=== PATIENT | male | born 1960 | race African-American/Black ===

== ENCOUNTER 2022-01-04 19:07 | Inpatient (IN) ==
[2022-01-04] MEDS ORDERED: PIPERACILLIN/TAZOBACTAM 4.5 GM/120 ML BAG IV ONE (19:46)
[2022-01-04] MEDS ORDERED: SODIUM CHLORIDE 0.9% 1000ML 1,000 ML IV STA (19:46)
[2022-01-04] MEDS ORDERED: MoRPHine SULFATE 4 MG/ML 1 ML CARP\\VIAL IV STA (19:48)
[2022-01-04] MEDS ORDERED: ONDANSETRON INJ 2 MG/ML 2 ML VIAL IV STA (19:48)
--- NOTE | 2022-01-04 19:51 | Emergency Department Note ---
Impression & Plan Diabetic infection of right foot, DEENA (acute kidney injury), Sepsis, Acute hyponatremia ED Provider Note Provider: William Norwood MD DATE OF SERVICE: 01/04/2022 CHIEF COMPLAINT: Foot wound HISTORY OF PRESENT ILLNESS: Patient is a 61-year-old gentleman history of diabetes presenting here today brought by his daughter for evaluation of a foot wound. Patient states about 2 weeks ago he noticed a wound on the right part of his foot. Denies any trauma or falls here. States the wound has progressed and is now having significant discharge and it smells foul. Patient states this is made him nauseous and he is having pain in the foot. Reports swelling of the right lower leg probably below the knee. Reports some chills today. No history of MRSA or diabetic infections reported. Patient states he does not monitor his blood sugar at home but is not on insulin. Patient states he has not been eating that well particularly today. Denies abdominal pain. REVIEW OF SYSTEMS: A total of 10 review of systems was obtained and negative except as stated above in the HPI. 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 NECK: Trachea midline. ENT: Mucous membranes pink and moist. LUNGS: Airway patent. No retractions or tachypnea HEART: Regular tachycardic rate and rhythm. ABDOMEN: Soft and non-tender, without guarding or rebound. SKIN: Acyanotic, warm, dry except as below EXTREMITIES: Patient with 1+ left lower extremity and 2+ right lower extremity below the knee. Patient with sloughing and purulent skin and possibly the right lateral foot by the fifth MTP area. There is some slight purulence on the anterior dorsum of the foot. Perhaps trace crepitus of the right foot. NEUROLOGICAL: No aphasia. No facial droop or slurred speech. Ambulatory. Moving all extremities with some mildly decreased sensation of the bilateral toes. EK bpm sinus tachycardia. No PVC PAC. No acute ST segment elevation or depression with a QTC of 440. CONTINUOUS CARDIAC MONITORING: was ordered and showed a heart rate of 80s-110s bpm in normal sinus rhythm to sinus tachycardia Patient's laboratory studies and imaging reviewed. Differential includes Foreign body, fracture, dislocation, joint compromise, infection, soft tissue injury, tendon injury, vascular compromise, compartment syndrome, as well as other pathologies. IMPRESSION/MEDICAL DECISION MAKING: Patient is a 61-year-old gentleman 2 weeks of worsening wound by his report of his right foot and he is a diabetic. Significant purulence noted and foul smell on exam. With the patient's evidence of purulence there I did bathe the area and Betadine and washed extensively with 500mL of normal saline. Wound culture obtained. Did debride a small amount of sloughing skin off the sole of the lateral foot that was barely hanging on. Patient endorses some chills today and is tachycardic. Blood work and cultures were obtained. No significant trauma is reported. X-ray per radiology without obvious evidence of Osteomyelitis but question some gas in the foot. Patient's blood work with evidence of leukocytosis and elevated ESR. Lactate not elevated. Initially ordered Zosyn and expanded with vancomycin and clindamycin given the findings on the x-ray. Discussed with the patient and daughter and reached out to orthopedics. Patient received more than 30 mL/kg of crystalloid fluid resuscitation. Blood work returns with a hyponatremia of 125 and creatinine of 2.6. Glucose elevated 354. Discussed with the patient and he denies a history of significant renal dysfunction. CRP significantly elevated in addition to the hyponatremia and elevated renal function. Again received IV fluid hydration. Discussed with orthopedics who recommended medical resuscitation antibiotics and will further evaluate in the morning for likely more debridement. Updated the patient and daughter at bedside. Hospitalist contacted for admission. DIAGNOSIS: Diabetic right foot infection, sepsis, hyponatremia, DEENA, hyperglycemia due to type 2 diabetes DISPOSITION: Hospitalist will evaluate Patient was agreeable with this plan. Past Med/Surg History Social History Smoking Status: Former smoker Tobacco Type: Cigarettes Feels Safe at Home: Yes Allergies Allergies Allergy/AdvReac Type Severity Reaction Status Date / Time No Known Allergies Allergy Verified 01/04/22 20:34 Home Meds Home Medications Medication Instructions Recorded Confirmed amlodipine 5 mg tablet 5 mg PO HS 01/04/22 01/04/22 cyanocobalamin (vitamin B-12) 2,000 mcg PO DAILY 01/04/22 01/04/22 2,000 mcg tablet,extended release dulaglutide 1.5 mg/0.5 mL 0 mg SUBCUT WK 01/04/22 01/04/22 subcutaneous pen injector (Trulicity) insulin degludec 200 unit/mL (3 0 unit SUBCUT DAILY 01/04/22 01/04/22 mL) subcutaneous pen (Tresiba FlexTouch U-200 insulin) lisinopril 5 mg tablet 5 mg PO DAILY 01/04/22 01/04/22 metformin 750 mg tablet,extended 750 mg PO DAILY 01/04/22 01/04/22 release 24 hr sildenafil 100 mg tablet 50 - 100 mg PO DIRECTED PRN 01/04/22 01/04/22 Results & Data (ED) Vital Signs Vital Signs - 24 hr 01/04/22 19:20 01/04/22 20:29 01/04/22 22:00 Temperature 36.9 C Temperature Source Temporal Artery Scan Pulse Rate 114 H Pulse Rate [Right Finger] 112 H 99 H Respiratory Rate 16 16 16 Respiratory Effort / Characteristics Non-Labored Spontaneous Respiratory Depth Normal Blood Pressure 156/75 H Blood Pressure [Right Arm] 171/87 H 145/76 H Blood Pressure Mean 102 Blood Pressure Mean [Right Arm] 115 99 Pulse Oximetry 100 98 100 Oxygen Delivery Method Room Air Room Air Room Air Sepsis Recent Fever Within 48 Hours No Sepsis New/Unexplained Change in Mental Status No Sepsis Action Taken by Nursing No Action Required Laboratory Data Result diagrams: 01/04/22 19:50 01/04/22 19:50 Lab Results 01/04/22 01/04/22 01/04/22 Range/Units 19:50 19:50 19:50 WBC 28.33 H (4.8-10.8) K/uL RBC 3.71 L (4.7-6.1) M/uL Hgb 10.0 L (14.0-18.0) g/dL Hct 28.8 L (42-52) % MCV 77.6 L (80-100) fL MCH 27.0 (25-34) pg MCHC 34.7 (32-36) g/dL RDW Std Deviation 38.3 (36.4-46.3) fL RDW Coeff of Radha 13.4 (11.5-14.5) % Plt Count 429 H (130-400) K/uL MPV 9.4 (7.4-10.4) fL Immature Gran % (Auto) 1.2 % Neut % (Auto) 90.0 % Lymph % (Auto) 6.1 % Dougherty % (Auto) 2.6 % Eos % (Auto) 0.0 % Baso % (Auto) 0.1 % Neut # (Auto) 25.48 H (1.4-6.5) K/uL Lymph # (Auto) 1.73 (1.2-3.4) K/uL Dougherty # (Auto) 0.75 H (0.11-0.59) K/uL Eos # (Auto) 0.01 (0-0.5) K/uL Baso # (Auto) 0.03 (0-0.2) K/uL Immature Gran # (Auto) 0.33 H (0.00-0.02) K/uL ESR (0-20) mm/hr PT 12.4 H (9.0-12.0) Seconds INR 1.2 H (0.9-1.1) Sodium 125 L (136-145) mmol/L Potassium 4.5 (3.5-5.1) mmol/L Chloride 94 L (98-107) mmol/L Carbon Dioxide 17 L (21-32) mmol/L Anion Gap 14 H (3-11) BUN 88 H (6-23) mg/dl Creatinine 2.65 H (0.6-1.4) mg/dl Est Cr Clr Drug Dosing 35.0 ml/min Est GFR ( Amer) 28.9 ml/min Est GFR (Non-Af Amer) 24.9 ml/min BUN/Creatinine Ratio 33.2 H (10-20) Glucose 354 H* (70-99(Fasting)) mg/dl Lactate (0.4-2.0) mmol/L Calcium 8.7 (8.5-10.1) mg/dl Total Bilirubin 1.1 H (0.2-1.0) mg/dl AST 25 (13-39) U/L ALT 22 (7-52) U/L Alkaline Phosphatase 272 H (34-104) U/L C-Reactive Protein 46.51 H (0-0.5) mg/dl Total Protein 8.1 (6.0-8.3) gm/dl Albumin 3.0 L (3.4-5.0) gm/dl Globulin 5.1 H (2.5-4.0) gm/dl Albumin/Globulin Ratio 0.6 L (0.9-2) Lipase 42 (11-82) U/L Procalcitonin (0-0.5) ng/ml Nasal Screen MRSA (PCR) (Negative) SARS-CoV-2, RNA, NAAT (NEGATIVE) 01/04/22 01/04/22 01/04/22 Range/Units 19:50 19:50 19:50 WBC (4.8-10.8) K/uL RBC (4.7-6.1) M/uL Hgb (14.0-18.0) g/dL Hct (42-52) % MCV (80-100) fL MCH (25-34) pg MCHC (32-36) g/dL RDW Std Deviation (36.4-46.3) fL RDW Coeff of Radha (11.5-14.5) % Plt Count (130-400) K/uL MPV (7.4-10.4) fL Immature Gran % (Auto) % Neut % (Auto) % Lymph % (Auto) % Dougherty % (Auto) % Eos % (Auto) % Baso % (Auto) % Neut # (Auto) (1.4-6.5) K/uL Lymph # (Auto) (1.2-3.4) K/uL Dougherty # (Auto) (0.11-0.59) K/uL Eos # (Auto) (0-0.5) K/uL Baso # (Auto) (0-0.2) K/uL Immature Gran # (Auto) (0.00-0.02) K/uL ESR 97 H (0-20) mm/hr PT (9.0-12.0) Seconds INR (0.9-1.1) Sodium (136-145) mmol/L Potassium (3.5-5.1) mmol/L Chloride (98-107) mmol/L Carbon Dioxide (21-32) mmol/L Anion Gap (3-11) BUN (6-23) mg/dl Creatinine (0.6-1.4) mg/dl Est Cr Clr Drug Dosing ml/min Est GFR ( Amer) ml/min Est GFR (Non-Af Amer) ml/min BUN/Creatinine Ratio (10-20) Glucose (70-99(Fasting)) mg/dl Lactate 1.4 (0.4-2.0) mmol/L Calcium (8.5-10.1) mg/dl Total Bilirubin (0.2-1.0) mg/dl AST (13-39) U/L ALT (7-52) U/L Alkaline Phosphatase (34-104) U/L C-Reactive Protein (0-0.5) mg/dl Total Protein (6.0-8.3) gm/dl Albumin (3.4-5.0) gm/dl Globulin (2.5-4.0) gm/dl Albumin/Globulin Ratio (0.9-2) Lipase (11-82) U/L Procalcitonin 15.28 H (0-0.5) ng/ml Nasal Screen MRSA (PCR) (Negative) SARS-CoV-2, RNA, NAAT (NEGATIVE) 01/04/22 01/04/22 Range/Units 20:08 20:48 WBC (4.8-10.8) K/uL RBC (4.7-6.1) M/uL Hgb (14.0-18.0) g/dL Hct (42-52) % MCV (80-100) fL MCH (25-34) pg MCHC (32-36) g/dL RDW Std Deviation (36.4-46.3) fL RDW Coeff of Radha (11.5-14.5) % Plt Count (130-400) K/uL MPV (7.4-10.4) fL Immature Gran % (Auto) % Neut % (Auto) % Lymph % (Auto) % Dougherty % (Auto) % Eos % (Auto) % Baso % (Auto) % Neut # (Auto) (1.4-6.5) K/uL Lymph # (Auto) (1.2-3.4) K/uL Dougherty # (Auto) (0.11-0.59) K/uL Eos # (Auto) (0-0.5) K/uL Baso # (Auto) (0-0.2) K/uL Immature Gran # (Auto) (0.00-0.02) K/uL ESR (0-20) mm/hr PT (9.0-12.0) Seconds INR (0.9-1.1) Sodium (136-145) mmol/L Potassium (3.5-5.1) mmol/L Chloride (98-107) mmol/L Carbon Dioxide (21-32) mmol/L Anion Gap (3-11) BUN (6-23) mg/dl Creatinine (0.6-1.4) mg/dl Est Cr Clr Drug Dosing ml/min Est GFR ( Amer) ml/min Est GFR (Non-Af Amer) ml/min BUN/Creatinine Ratio (10-20) Glucose (70-99(Fasting)) mg/dl Lactate (0.4-2.0) mmol/L Calcium (8.5-10.1) mg/dl Total Bilirubin (0.2-1.0) mg/dl AST (13-39) U/L ALT (7-52) U/L Alkaline Phosphatase (34-104) U/L C-Reactive Protein (0-0.5) mg/dl Total Protein (6.0-8.3) gm/dl Albumin (3.4-5.0) gm/dl Globulin (2.5-4.0) gm/dl Albumin/Globulin Ratio (0.9-2) Lipase (11-82) U/L Procalcitonin (0-0.5) ng/ml Nasal Screen MRSA (PCR) Negative (Negative) SARS-CoV-2, RNA, NAAT NEGATIVE (NEGATIVE) Administered Medications Vancomycin HCl 2,000 mg/ (Sodium Chloride) 540 mls @ 200 mls/hr IV NOW ONE Stop: 01/04/22 23:24 Last Admin: 01/04/22 21:30 Dose: 200 mls/hr Documented by: [id number] Discontinued Medications Sodium Chloride (Nss 1000ml) 1,000 mls @ 999 mls/hr IV .Q1H1M STA Stop: 01/04/22 20:46 Last Infusion: 01/04/22 21:18 Dose: 0 mls/hr Documented by: [id number] Admin: 01/04/22 20:09 Dose: 999 mls/hr Documented by: [id number] Piperacillin Sod/Tazobactam Sod (Zosyn) 4.5 gm in 120 mls @ 240 mls/hr IV NOW ONE Stop: 01/04/22 20:15 Last Infusion: 01/04/22 21:17 Dose: 0 mls/hr Documented by: [id number] Admin: 01/04/22 20:29 Dose: 240 mls/hr Documented by: [id number] Lactated Ringer's (Lr) 2,000 mls @ 999 mls/hr IV .Q2H1M ONE Stop: 01/04/22 22:43 Last Admin: 01/04/22 21:30 Dose: 999 mls/hr Documented by: [id number] Morphine Sulfate (Morphine Sulfate 4 Mg/Ml 1 Ml Carp\Vial) 4 mg IV NOW STA Stop: 01/04/22 19:49 Last Admin: 01/04/22 20:09 Dose: 4 mg Documented by: [id number] Ondansetron HCl (Ondansetron Inj 2 Mg/Ml 2 Ml Vial) 4 mg IV NOW STA Stop: 01/04/22 19:49 Last Admin: 01/04/22 20:09 Dose: 4 mg Documented by: [id number] Imaging Data Radiologist's Impression: Foot X-Ray 01/04/22 19:46 XR foot RT min 3V routine CLINICAL HISTORY: lateral wound. COMPARISON STUDY: No previous studies for comparison. TECHNIQUE: 3 right foot views FINDINGS: Bones: There is no definite radiographic evidence for osteomyelitis. There is no evidence for an acute fracture or dislocation. There is no lytic or blastic lesion. Joints: There is narrowing of the fourth and fifth MTP joints The bones are in anatomic alignment. Soft tissues: There is extensive soft tissue swelling along the dorsum and lateral aspect of the foot. Air is seen tracking along the deep fascial plane. The findings are most characteristic of gastroenteritis. There is no radiopaque foreign body. IMPRESSION: 1. 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 2. No definite radiographic evidence for osteomyelitis. ACT 112: Negative or not required by law. Electronically signed by: Maxime Pelayo M.D. 01/04/2022 8:22 PM Discharge Plan Visit Data Chief Complaint: Wound Stated Complaint: DIABETES FALRE UP, WOUND ON R FOOT ED Provider: William Norwood Discharge Problem: Diabetic infection of right foot, DEENA (acute kidney injury), Sepsis, Acute hyponatremia Patient Disposition: Being Evaluated by Hospitalist Forms Stand Alone Forms: My [facility] [employer] Prescriptions Prescriptions: No Action amlodipine 5 mg tablet 5 mg PO HS RF: 0 sildenafil 100 mg tablet 50 - 100 mg PO DIRECTED PRN (Reason: Erectile Dysfunction) RF: 0 lisinopril 5 mg tablet 5 mg PO DAILY RF: 0 cyanocobalamin (vitamin B-12) 2,000 mcg tablet extended release 2,000 mcg PO DAILY RF: 0 metformin 750 mg tablet extended release 24 hr 750 mg PO DAILY RF: 0 Tresiba FlexTouch U-200 200 unit/mL (3 mL) Insulin Pen 0 unit SUBCUT DAILY RF: 0 Trulicity 1.5 mg/0.5 mL Pen Injector 0 mg SUBCUT WK RF: 0 Referrals Referrals: De Quinn DO [Primary Care Provider] - Discharge Problem: Sepsis Qualifiers: Sepsis type: sepsis due to unspecified organism Sepsis acute organ dysfunction status: with acute organ dysfunction Severe sepsis acute organ dysfunction type: unspecified Severe sepsis shock status: without septic shock Qualified Code(s): A41.9 - Sepsis, unspecified organism
[2022-01-04 20:16] LABS: Hematocrit (blood only) 28.8 % (42-52); Mean Corpuscular Hgb Conc 34.7 g/dL (32-36); Mean Corpuscular Volume 77.6 fL (80-100); Mean Platelet Volume 9.4 fL (7.4-10.4); Platelet Count 429 K/uL (130-400); RDW Coefficient of Variation 13.4 % (11.5-14.5); RDW Standard Deviation 38.3 fL (36.4-46.3); Red Blood Count 3.71 M/uL (4.7-6.1); White Blood Count 28.33 K/uL (4.8-10.8)
--- NOTE | 2022-01-04 20:24 | XRay Report ---
XR foot RT min 3V routine CLINICAL HISTORY: lateral wound. COMPARISON STUDY: No previous studies for comparison. TECHNIQUE: 3 right foot views FINDINGS: Bones: There is no definite radiographic evidence for osteomyelitis. There is no evidence for an acut e fracture or dislocation. There is no lytic or blastic lesion. Joints: There is narrowing of the fourth and fifth MTP joints The bones are in anatomic alignment. Soft tissues: There is extensive soft tissue swelling along the dorsum and lateral aspect of the foot . Air is seen tracking along the deep fascial plane. The findings are most characteristic of gastroen teritis. There is no radiopaque foreign body. IMPRESSION: 1. 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 2. No definite radiographic evidence for osteomyelitis. ACT 112: Negative or not required by law. Electronically signed by: Maxime Pelayo M.D. 01/04/2022 8:22 PM
[2022-01-04 20:36] LABS: Basophils # (auto) 0.03 K/uL (0-0.2); Basophils % (auto) 0.1 %; Eosinophils # (auto) 0.01 K/uL (0-0.5); Immature Granulocytes # (auto) 0.33 K/uL (0.00-0.02); Immature Granulocytes % (auto) 1.2 %; Lymphocytes # (auto) 1.73 K/uL (1.2-3.4); Lymphocytes % (auto) 6.1 %; Monocytes # (auto) 0.75 K/uL (0.11-0.59); Monocytes % (auto) 2.6 %; Neutrophils # (auto) 25.48 K/uL (1.4-6.5)
[2022-01-04 20:40] LABS: INR 1.2 (0.9-1.1); Prothrombin Time 12.4 Seconds (9.0-12.0)
[2022-01-04] MEDS ORDERED: VANCOMYCIN HCL 2,000 MG in SODIUM CHLORIDE 0.9% 500 ML IV ONE (20:43)
[2022-01-04] MEDS ORDERED: VANCOMYCIN CONSULT ACTIVE PRN (20:43)
[2022-01-04] MEDS ORDERED: LACTATED RINGER'S 2,000 ML IV ONE (20:43)
[2022-01-04 20:59] LABS: Albumin Globulin Ratio 0.6 (0.9-2); BUN Creatinine Ratio 33.2 (10-20); Bilirubin,Total 1.1 mg/dl (0.2-1.0); Calcium 8.7 mg/dl (8.5-10.1); Est GFR (African American) 28.9 ml/min; Est GFR (Non-African American) 24.9 ml/min; Globulin 5.1 gm/dl (2.5-4.0); Potassium 4.5 mmol/L (3.5-5.1); Total Protein 8.1 gm/dl (6.0-8.3)
[2022-01-04 21:09] LABS: C Reactive Protein 46.51 mg/dl (0-0.5)
[2022-01-04] MEDS ORDERED: CLINDAMYCIN/D5W 900 MG/50 ML BAG IV ONE (21:28)
--- NOTE | 2022-01-04 22:54 | History & Physical Report ---
Date of Service January 04, 2022 Assessment & Plan (1) Diabetic infection of right foot: Plan: Right foot diabetic infection/gas gangrene- Given vancomycin IV and Zosyn IV in ED Admitting antibiotics: Daptomycin 6 mg/kg IV every 24 hours, and Zosyn 4.5 g IV every 8 hours Consult orthopedic surgery Dr. Soto (2) Gas gangrene of foot: Plan: See above (3) Renal insufficiency: Plan: Creatinine 2.65 upon admission, with no baseline- Bicarbonate 17 on admission Placed on bicarb drip, follow labs serially in the a.m. (4) Sepsis: Plan: Sepsis secondary to diabetic foot infection, treat as above (5) Acute hyponatremia: Plan: Sodium 125 on admission Serum osmolality and urine osmolality ordered and pending Bicarbonate drip as noted above Follow laboratory serially (6) Diabetes mellitus: Plan: Glucose 354 on admission Patient is not consistent about taking his insulin, or consistent about taking his blood sugars Placedon glargine 14 units subcu now Accu-Cheks before meals and at bedtime with NovoLog coverage per scale Hold metformin and Trulicity Adjust glargine dose based on above response Patient does not know his baseline insulin dosing (7) Hypertension: Plan: Hold lisinopril due to renal insufficiency Metoprolol tartrate 50 mg p.o. twice daily (8) B12 deficiency: Plan: Continue supplement 2000 mcg p.o. daily History of Present Illness Chief Complaint: The patient is brought to the emergency department by his daughter due to concerns regarding a right foot infection. This initially began about 2 weeks ago after wearing a new pair of boots while walking out [facility], during which time he reports his foot got wet and was not cleaned properly. His foot was noted to have a bad odor to it, and he began feeling nauseous, had chills, and with decreased appetite over the past few days. Primary Care Provider: De Quinn DO The patient is a 61-year-old male with a past medical history including poorly controlled diabetes mellitus, hypertension, B12 deficiency, hypertension and erectile dysfunction. He presents with symptoms as noted above. He has not been checking his sugars on any type of regular frequency, and does have insulin but only occasionally takes it. Allergies Allergy/AdvReac Type Severity Reaction Status Date / Time No Known Allergies Allergy Verified 01/04/22 20:34 Home Medications Medication Instructions Recorded Confirmed Type amlodipine 5 mg tablet 5 mg PO HS 01/04/22 01/04/22 History cyanocobalamin (vitamin B-12) 2,000 mcg PO DAILY 01/04/22 01/04/22 History 2,000 mcg tablet,extended release dulaglutide 1.5 mg/0.5 mL 0 mg SUBCUT WK 01/04/22 01/04/22 History subcutaneous pen injector (Trulicity) insulin degludec 200 unit/mL (3 0 unit SUBCUT DAILY 01/04/22 01/04/22 History mL) subcutaneous pen (Tresiba FlexTouch U-200 insulin) lisinopril 5 mg tablet 5 mg PO DAILY 01/04/22 01/04/22 History metformin 750 mg tablet,extended 750 mg PO DAILY 01/04/22 01/04/22 History release 24 hr sildenafil 100 mg tablet 50 - 100 mg PO DIRECTED PRN 01/04/22 01/04/22 History Past Med/Surg History Medical History (Updated 01/05/22 @ 02:56 by Jairo Travis MD) B12 deficiency Diabetes mellitus Hypertension Social History Smoking Status: Never smoker Tobacco Type: Cigarettes Hx Alcohol Use: No Hx Substance Use: No Preferred Language: Maldivian Pharmacy Technician Instructor Required: No Beliefs That Will Affect Care: None Current Living Situation: Alone Other Information That Helps Us Care for You: No Feels Safe at Home: Yes Safety Concerns: Feels Safe At This Time Assistive Devices: None Review of Systems Review of Systems: The patient denies chest pain, palpitations, shortness of breath, dyspnea on exertion, cough, sore throat, fevers, chills, sweats, vomiting, diarrhea , constipation, abdominal pain, pelvic pain, blood in urine or stool, dysuria, urinary frequency or urgency, lightheadedness, dizziness, headache, memory loss, loss of consciousness, rash, abnormal bruising or bleeding, imbalance, focal weakness,numbness or tingling in arms or legs, generalized arthralgias or myalgias, back or neck pain, or night sweats. The review of systems is otherwise negative other than for that already noted above, and at least 10 systems have been reviewed. Physical Exam Physical Exam: The patient is awake, alert and oriented 3, well developed and well nourished, normocephalic and atraumatic, lying in bed and in no acute distress. HEENT--PERRL, EOMI, mucous membranes and oropharynx dry. Neck--supple. No JVD. No bruits. Thyroid normal, trachea midline, no adenopathy. Heart--normal S1 and S2. No murmurs, rubs or gallops. Lungs--clear bilaterally, no respiratory distress, no accessory muscle use. Abdomen--normal bowel sounds and soft. Nontender. Nondistended, no hernias or masses, no organomegaly. Extremities--no cyanosis or clubbing. No edema. There are good distal pulses b/l. Dermatologic--right foot is wrapped. Left without injury Neurologic--cranial nerves II through XII grossly intact. Rheumatologic--normal range of motion. Psychiatric--normal affect. Results & Data Results & Data ([facility]) Vital Signs (Past 12 Hours) Vital Signs Temp Pulse Pulse Resp BP BP Pulse Ox 01/04/22 22:00 99 H 16 145/76 H 100 01/04/22 20:29 112 H 16 171/87 H 98 01/04/22 19:20 36.9 C 114 H 16 156/75 H 100 Laboratory Results Laboratory Results WBC 28.33 K/uL (4.8-10.8) H 01/04/22 19:50 RBC 3.71 M/uL (4.7-6.1) L 01/04/22 19:50 Hgb 10.0 g/dL (14.0-18.0) L 01/04/22 19:50 Hct 28.8 % (42-52) L 01/04/22 19:50 MCV 77.6 fL (80-100) L 01/04/22 19:50 MCH 27.0 pg (25-34) 01/04/22 19:50 MCHC 34.7 g/dL (32-36) 01/04/22 19:50 RDW Std Deviation 38.3 fL (36.4-46.3) 01/04/22 19:50 RDW Coeff of Radha 13.4 % (11.5-14.5) 01/04/22 19:50 Plt Count 429 K/uL (130-400) H 01/04/22 19:50 MPV 9.4 fL (7.4-10.4) 01/04/22 19:50 Immature Gran % (Auto) 1.2 % 01/04/22 19:50 Neut % (Auto) 90.0 % 01/04/22 19:50 Lymph % (Auto) 6.1 % 01/04/22 19:50 [place] % (Auto) 2.6 % 01/04/22 19:50 Eos % (Auto) 0.0 % 01/04/22 19:50 Baso % (Auto) 0.1 % 01/04/22 19:50 Neut # (Auto) 25.48 K/uL (1.4-6.5) H 01/04/22 19:50 Lymph # (Auto) 1.73 K/uL (1.2-3.4) 01/04/22 19:50 [place] # (Auto) 0.75 K/uL (0.11-0.59) H 01/04/22 19:50 Eos # (Auto) 0.01 K/uL (0-0.5) 01/04/22 19:50 Baso # (Auto) 0.03 K/uL (0-0.2) 01/04/22 19:50 Immature Gran # (Auto) 0.33 K/uL (0.00-0.02) H 01/04/22 19:50 ESR 97 mm/hr (0-20) H 01/04/22 19:50 PT 12.4 Seconds (9.0-12.0) H 01/04/22 19:50 INR 1.2 (0.9-1.1) H 01/04/22 19:50 Sodium 125 mmol/L (136-145) L 01/04/22 19:50 Potassium 4.5 mmol/L (3.5-5.1) 01/04/22 19:50 Chloride 94 mmol/L (98-107) L 01/04/22 19:50 Carbon Dioxide 17 mmol/L (21-32) L 01/04/22 19:50 Anion Gap 14 (3-11) H 01/04/22 19:50 BUN 88 mg/dl (6-23) H 01/04/22 19:50 Creatinine 2.65 mg/dl (0.6-1.4) H 01/04/22 19:50 Est Cr Clr Drug Dosing 35.0 ml/min 01/04/22 19:50 Est GFR ( Amer) 28.9 ml/min 01/04/22 19:50 Est GFR (Non-Af Amer) 24.9 ml/min 01/04/22 19:50 BUN/Creatinine Ratio 33.2 (10-20) H 01/04/22 19:50 Glucose 354 mg/dl (70-99(Fasting)) H* 01/04/22 19:50 POC Glucose 366 mg/dl (70-99) H* 01/04/22 23:59 Osmolality 309 mOsm/kg (280-300) H 01/04/22 20:02 Lactate 1.4 mmol/L (0.4-2.0) 01/04/22 19:50 Calcium 8.7 mg/dl (8.5-10.1) 01/04/22 19:50 Total Bilirubin 1.1 mg/dl (0.2-1.0) H 01/04/22 19:50 AST 25 U/L (13-39) 01/04/22 19:50 ALT 22 U/L (7-52) 01/04/22 19:50 Alkaline Phosphatase 272 U/L (34-104) H 01/04/22 19:50 C-Reactive Protein 46.51 mg/dl (0-0.5) H 01/04/22 19:50 Total Protein 8.1 gm/dl (6.0-8.3) 01/04/22 19:50 Albumin 3.0 gm/dl (3.4-5.0) L 01/04/22 19:50 Globulin 5.1 gm/dl (2.5-4.0) H 01/04/22 19:50 Albumin/Globulin Ratio 0.6 (0.9-2) L 01/04/22 19:50 Lipase 42 U/L (11-82) 01/04/22 19:50 Procalcitonin 15.28 ng/ml (0-0.5) H 01/04/22 19:50 Nasal Screen MRSA (PCR) Negative (Negative) 01/04/22 20:08 SARS-CoV-2, RNA, NAAT NEGATIVE (NEGATIVE) 01/04/22 20:48 Impressions Foot X-Ray 01/04/22 19:46 XR foot RT min 3V routine CLINICAL HISTORY: lateral wound. COMPARISON STUDY: No previous studies for comparison. TECHNIQUE: 3 right foot views FINDINGS: Bones: There is no definite radiographic evidence for osteomyelitis. There is no evidence for an acute fracture or dislocation. There is no lytic or blastic lesion. Joints: There is narrowing of the fourth and fifth MTP joints The bones are in anatomic alignment. Soft tissues: There is extensive soft tissue swelling along the dorsum and lateral aspect of the foot. Air is seen tracking along the deep fascial plane. The findings are most characteristic of gastroenteritis. There is no radiopaque foreign body. IMPRESSION: 1. 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 2. No definite radiographic evidence for osteomyelitis. ACT 112: Negative or not required by law. Electronically signed by: Maxime Pelayo M.D. 01/04/2022 8:22 PM Code Status & VTE Plan Code Status Full code VTE Prophylaxis Plan VTE Prophylaxis will be ordered: Yes PG Care Time/CCT Total # of Minutes Spent Total Time Spent with Patient: Total time spent is greater than 50% in coordination of care (as documented) at patient's floor/unit and/or counseling patient: Coding Level of Care Code 02504 Initial Inpt Care Lvl 3 Diagnoses Gas gangrene of foot A48.0 Diabetic infection of right foot E11.628; L08.9 Renal insufficiency N28.9 Sepsis A41.9; R65.20 Sepsis acute organ dysfunction status: with acute organ dysfunction Sepsis type: sepsis due to unspecified organism Severe sepsis acute organ dysfunction type: unspecified Severe sepsis shock status: without septic shock Acute hyponatremia E87.1 Diabetes mellitus E11.9 Hypertension I10 B12 deficiency E53.8 (1) Sepsis Sepsis acute organ dysfunction status: with acute organ dysfunction Sepsis type: sepsis due to unspecified organism Severe sepsis acute organ dysfunction type: unspecified Severe sepsis shock status: without septic shock Qualified Code(s): A41.9 - Sepsis, unspecified organism; R65.20 - Severe sepsis without septic shock
[2022-01-05] MEDS ORDERED: DEXTROSE 50% 50 ML SYRINGE IV PRN (00:07)
[2022-01-05] MEDS ORDERED: GLUCOSE 40% GEL 15 GM TUBE PO PRN (00:07)
[2022-01-05] MEDS ORDERED: SODIUM CHLORIDE 0.9% 1000ML 1,000 ML IV SCH (00:07)
[2022-01-05] MEDS ORDERED: CARBOHYDRATES FOR HYPOGLYCEMIA PO PRN (00:07)
[2022-01-05] MEDS ORDERED: PIPERACILLIN/TAZOBACTAM 4.5 GM in DEXTROSE 5% 100 ML IV SCH (00:07)
[2022-01-05] MEDS ORDERED: GLUCOSE 10 TABS/TUBE PO PRN (00:07)
[2022-01-05] MEDS ORDERED: ONDANSETRON INJ 2 MG/ML 2 ML VIAL IV PRN (00:07)
[2022-01-05] MEDS ORDERED: GLUCAGON FOR INJ 1 MG VIAL SQ PRN (00:07)
[2022-01-05] MEDS ORDERED: INSULIN ASPART PER UNIT SC SCH ×2 (00:35→07:30)
[2022-01-05] MEDS: PIPERACILLIN/TAZOBACTAM 3.375 GM in DEXTROSE 5% 100 ML IV SCH ×3 (02:01→18:13)
[2022-01-05] MEDS ORDERED: INSULIN GLARGINE SOLOSTAR 100 UNITS/ML 3 ML PEN SC STA (02:46)
[2022-01-05] MEDS ORDERED: METOPROLOL TARTRATE 50 MG TAB PO STA (02:58)
[2022-01-05] MEDS ORDERED: SODIUM BICARBONATE 8.4% 150 MEQ in WATER, STERILE 1,000 ML IV SCH (03:00)
--- NOTE | 2022-01-05 03:01 | Billing Data ---
Date of Service January 05, 2022 Coding Level of Care Code 88072 Initial Inpt Care Lvl 3
[2022-01-05] MEDS ORDERED: CLINDAMYCIN PHOS 900 MG/6 ML VIAL IV SCH (06:00)
[2022-01-05] MEDS ORDERED: Nursing to Pharmacy Communication SCH (06:15)
[2022-01-05] MEDS: INSULIN ASPART PER UNIT SC SCH ×3 (06:29→18:13)
--- NOTE | 2022-01-05 07:25 | Ultrasound Report ---
RIGHT LOWER EXTREMITY ARTERIAL DOPPLER ULTRASOUND CLINICAL HISTORY: diabetic foot ulcer COMPARISON STUDY: No previous studies for comparison. TECHNIQUE: Color and duplex Doppler sonography of the arterial system of the right lower extremity wa s performed. FINDINGS: Prominent right groin nodes have benign imaging characteristics. There is triphasic flow wi thin the right common femoral artery as well as the right profunda. There is also triphasic flow with in the proximal to mid superficial femoral artery. Mild atherosclerotic plaque is noted. No elevated velocities are identified. There is monophasic flow within the right popliteal, posterior tibial, ant erior tibial, peroneal and dorsalis pedis vessels. Waveforms within the right dorsalis pedis are jasmyn edly dampened. Right lower extremity subcutaneous edema is incidentally noted. IMPRESSION: 1. Monophasic flow within the right calf vessels, as above. 2. No evidence for a hemodynamically significant stenosis within the right lower extremity. Mild athe rosclerotic plaque. 3. No evidence for inflow disease. ACT 112: Negative or not required by law. Electronically signed by: Quentin Falcon M.D. 01/05/2022 7:24 AM
--- NOTE | 2022-01-05 08:52 | Hospitalist Progress Note ---
Date of Service January 05, 2022 Assessment & Plan (1) Gas gangrene of foot: Plan: 61yo Male PMH poorly controlled DM2, HTN, B12 deficiency here for right foot gangrene (1) Diabetic infection of right foot: Right foot diabetic infection/gas gangrene WBC 28.33 Given vancomycin IV and Zosyn IV in ED, switched to Daptomycin 6 mg/kg IV every 24 hours, and Zosyn 4.5 g IV every 8 [address] orthopedic surgery Dr. Soto, possible surgery tomorrow make NPO at midnight (2) Gas gangrene of foot: See above (3) Renal insufficiency: Creatinine 2.65 upon admission, with no baseline- Bicarbonate 17 on admission, recheck 21 Placed on bicarb drip, bicarb d/c'd (4) Sepsis: Sepsis secondary to diabetic foot infection, treat as above Procal 15.28 CRP 46.51 MRSA nares neg Bcx pending (5) Acute hyponatremia: Sodium 125 on admission, corrected for hyperglycemia 131 Serum osmolality 309, urine osmolality pending (6) Diabetes mellitus: Glucose 354 on admission, poor glycemic control, poor understanding of diabetes A1c 8.0 Placed on glargine 14 units subcu Accu-Cheks before meals and at bedtime with NovoLog coverage per scale Hold metformin and Trulicity Adjust glargine dose based on above response consult glycemic education (7) Hypertension: Hold lisinopril due to renal insufficiency Metoprolol tartrate 50 mg p.o. twice daily (8) B12 deficiency: Continue supplement 2000 mcg p.o. daily FENa: carb consistent Code Status: Full DVT PPX: heparin PT/OT: none, consider post surgery Case Management: pending Dispo: med/surg Elsa Arce Do PGY 2, FCM (2) Renal insufficiency: (3) Diabetes mellitus: (4) Hypertension: (5) B12 deficiency: (6) Diabetic infection of right foot: (7) DEENA (acute kidney injury): (8) Sepsis: (9) Acute hyponatremia: Admission and Anticipated Discharge Date Admission Date: January 04, 2022 Supervising Physician Co-Signing Physician Notes I personally examined the patient and verified all ocasio points of history and exam, discussed case, and agree with decision making with Dr Arce. Feeling okay, exhausted though. No foot pain. Vitals noted, in general he is awake and alert pleasant no distress. HEENT normocephalic atraumatic mucous membranes moist. Breathing unlabored no accessory muscle use good effort. Skin shows no rashes no pallor or icterus. Neuro without focal deficits. Diabetic foot infection/gangrene with sepsis present on admission daptomycin and Zosynanticipate surgical debridement tomorrow. Sepsis appears fortunately overall stabledifficult to clarify if its sepsis versus severe sepsis given that its unclear what his baseline creatinine is. We will try to reach out to PCP to get a better feel for his baseline, for now could assume that it is an DEENA which would quantify as severe sepsisbut again this is not entirely clear. Uncontrolled type 2 diabetesdiscussed "why to care" (progressive hyperglycemia leading to microvascular ischemia)for now inpatient management with insulin. Ongoing education. Otherwise as above. Subjective Patient seen at bedside calm comfortable cooperative, he states he is feeling slightly weak but not in pain, denies pain in foot. Patient states he is here for his right foot infection, noticed something off while walking in boots 2 [place], then the foot infection continued to progress. Patient followed with [facility], Dr. Alvarez. He states he takes his long acting insulin once a week and the short acting insulin daily. His understanding of his diabetes is that he 'was careless and that's why my foot's like that'. Patient understands the surgeon will also come by to see his foot and will be the one to determine what degree of surgery he requires. Patient states he is ok if an amputation is needed, states he prefers to live. Patient states he has some chronic swelling of his legs. Review of Systems Review of Systems: Negative fever chills Negative headache dizziness Negative chest pain palpitations SOB Negative nausea vomitting diarrhea constipation Negative numbness tingling rash Physical Exam Constitutional: WD/WN, vitals as above Eyes: PERRL, conjunctivae normal, anicteric sclerae ENMT: external ear and nose normal, oropharynx normal Neck: trachea midline, no thyromegaly Respiratory: normal respiratory effort, lungs clear to auscultation Cardiovascular: RRR, no murmur, no edema Chest (Breasts): Chest: normal inspection of chest Gastrointestinal (Abdomen): normal bowel sounds, soft, nontender, no hepatosplenomegaly Skin: gangrene noted on right lateral foot, noted onychomycosis on all toenails, +3 pitting edema on legs up to thigh R>L nontender Psychiatric: A+Ox3, euthymic affect Results & Data Results & Data ([facility]) Vital Signs (Past 12 Hours) Vital Signs Temp Pulse Resp BP BP Pulse Ox 01/05/22 06:30 37.5 C 82 18 124/62 97 01/05/22 03:44 36.8 C 97 H 19 139/65 96 01/05/22 00:25 37.1 C 101 H 16 159/78 H 98 01/04/22 22:00 99 H 16 145/76 H 100 Diagnostic Findings Laboratory Results WBC 23.70 K/uL (4.8-10.8) H 01/05/22 08:42 RBC 3.45 M/uL (4.7-6.1) L 01/05/22 08:42 Hgb 9.1 g/dL (14.0-18.0) L 01/05/22 08:42 Hct 26.6 % (42-52) L 01/05/22 08:42 MCV 77.1 fL (80-100) L 01/05/22 08:42 MCH 26.4 pg (25-34) 01/05/22 08:42 MCHC 34.2 g/dL (32-36) 01/05/22 08:42 RDW Std Deviation 38.6 fL (36.4-46.3) 01/05/22 08:42 RDW Coeff of Radha 13.5 % (11.5-14.5) 01/05/22 08:42 Plt Count 335 K/uL (130-400) 01/05/22 08:42 MPV 8.9 fL (7.4-10.4) 01/05/22 08:42 Immature Gran % (Auto) 0.7 % 01/05/22 08:42 Neut % (Auto) 90.3 % 01/05/22 08:42 Lymph % (Auto) 8.5 % 01/05/22 08:42 [place] % (Auto) 0.2 % 01/05/22 08:42 Eos % (Auto) 0.3 % 01/05/22 08:42 Baso % (Auto) 0.0 % 01/05/22 08:42 Neut # (Auto) 21.39 K/uL (1.4-6.5) H 01/05/22 08:42 Lymph # (Auto) 2.01 K/uL (1.2-3.4) 01/05/22 08:42 [place] # (Auto) 0.04 K/uL (0.11-0.59) L 01/05/22 08:42 Eos # (Auto) 0.08 K/uL (0-0.5) 01/05/22 08:42 Baso # (Auto) 0.01 K/uL (0-0.2) 01/05/22 08:42 Immature Gran # (Auto) 0.17 K/uL (0.00-0.02) H 01/05/22 08:42 ESR 97 mm/hr (0-20) H 01/04/22 19:50 PT 12.4 Seconds (9.0-12.0) H 01/05/22 08:42 INR 1.2 (0.9-1.1) H 01/05/22 08:42 APTT 31.6 Seconds (21.0-31.0) H 01/05/22 08:42 PTT Ratio 1.1 01/05/22 08:42 Sodium 128 mmol/L (136-145) L 01/05/22 08:42 Potassium 4.6 mmol/L (3.5-5.1) 01/05/22 08:42 Chloride 100 mmol/L (98-107) 01/05/22 08:42 Carbon Dioxide 21 mmol/L (21-32) 01/05/22 08:42 Anion Gap 7 (3-11) 01/05/22 08:42 BUN 85 mg/dl (6-23) H 01/05/22 08:42 Creatinine 2.49 mg/dl (0.6-1.4) H 01/05/22 08:42 Est Cr Clr Drug Dosing 37.2 ml/min 01/05/22 08:42 Est GFR ( Amer) 31.1 ml/min 01/05/22 08:42 Est GFR (Non-Af Amer) 26.8 ml/min 01/05/22 08:42 BUN/Creatinine Ratio 34.1 (10-20) H 01/05/22 08:42 Glucose 254 mg/dl (70-99(Fasting)) H 01/05/22 08:42 POC Glucose 248 mg/dl (70-99) H 01/05/22 12:06 Estimat Average Glucose 183 mg/dl 01/05/22 08:42 Hemoglobin A1c 8.0 % (4.5-5.6) H 01/05/22 08:42 Osmolality 309 mOsm/kg (280-300) H 01/04/22 20:02 Lactate 1.4 mmol/L (0.4-2.0) 01/04/22 19:50 Calcium 8.2 mg/dl (8.5-10.1) L 01/05/22 08:42 Total Bilirubin 1.0 mg/dl (0.2-1.0) 01/05/22 08:42 AST 15 U/L (13-39) 01/05/22 08:42 ALT 17 U/L (7-52) 01/05/22 08:42 Alkaline Phosphatase 191 U/L (34-104) H 01/05/22 08:42 C-Reactive Protein 46.51 mg/dl (0-0.5) H 01/04/22 19:50 Total Protein 6.6 gm/dl (6.0-8.3) 01/05/22 08:42 Albumin 2.4 gm/dl (3.4-5.0) L 01/05/22 08:42 Globulin 4.2 gm/dl (2.5-4.0) H 01/05/22 08:42 Albumin/Globulin Ratio 0.6 (0.9-2) L 01/05/22 08:42 Lipase 42 U/L (11-82) 01/04/22 19:50 Procalcitonin 15.28 ng/ml (0-0.5) H 01/04/22 19:50 Nasal Screen MRSA (PCR) Negative (Negative) 01/04/22 20:08 SARS-CoV-2, RNA, NAAT NEGATIVE (NEGATIVE) 01/04/22 20:48 Impressions Foot X-Ray 01/04/22 19:46 XR foot RT min 3V routine CLINICAL HISTORY: lateral wound. COMPARISON STUDY: No previous studies for comparison. TECHNIQUE: 3 right foot views FINDINGS: Bones: There is no definite radiographic evidence for osteomyelitis. There is no evidence for an acute fracture or dislocation. There is no lytic or blastic lesion. Joints: There is narrowing of the fourth and fifth MTP joints The bones are in anatomic alignment. Soft tissues: There is extensive soft tissue swelling along the dorsum and lateral aspect of the foot. Air is seen tracking along the deep fascial plane. The findings are most characteristic of gastroenteritis. There is no radiopaque foreign body. IMPRESSION: 1. 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 2. No definite radiographic evidence for osteomyelitis. ACT 112: Negative or not required by law. Electronically signed by: Maxime Pelayo M.D. 01/04/2022 8:22 PM Duplex Scan Lower Extremity Artery 01/04/22 22:41 RIGHT LOWER EXTREMITY ARTERIAL DOPPLER ULTRASOUND CLINICAL HISTORY: diabetic foot ulcer COMPARISON STUDY: No previous studies for comparison. TECHNIQUE: Color and duplex Doppler sonography of the arterial system of the right lower extremity was performed. FINDINGS: Prominent right groin nodes have benign imaging characteristics. There is triphasic flow within the right common femoral artery as well as the right profunda. There is also triphasic flow within the proximal to mid superficial femoral artery. Mild atherosclerotic plaque is noted. No elevated velocities are identified. There is monophasic flow within the right popliteal, posterior tibial, anterior tibial, peroneal and dorsalis pedis vessels. Waveforms within the right dorsalis pedis are markedly dampened. Right lower extremity subcutaneous edema is incidentally noted. IMPRESSION: 1. Monophasic flow within the right calf vessels, as above. 2. No evidence for a hemodynamically significant stenosis within the right lower extremity. Mild atherosclerotic plaque. 3. No evidence for inflow disease. ACT 112: Negative or not required by law. Electronically signed by: Quentin Falcon M.D. 01/05/2022 7:24 AM Resident Activity Tracking Resident Involvement: Resident Care Provided Care Provided: Adult Hospital Medicine (1) Sepsis Sepsis acute organ dysfunction status: with acute organ dysfunction Sepsis type: sepsis due to unspecified organism Severe sepsis acute organ dysfunction type: unspecified Severe sepsis shock status: without septic shock Qualified Code(s): A41.9 - Sepsis, unspecified organism; R65.20 - Severe sepsis without septic shock
[2022-01-05 08:59] LABS: Hematocrit (blood only) 26.6 % (42-52); Hemoglobin 9.1 g/dL (14.0-18.0); Mean Corpuscular Hemoglobin 26.4 pg (25-34); Mean Corpuscular Hgb Conc 34.2 g/dL (32-36); Mean Corpuscular Volume 77.1 fL (80-100); Mean Platelet Volume 8.9 fL (7.4-10.4); Platelet Count 335 K/uL (130-400); RDW Coefficient of Variation 13.5 % (11.5-14.5); RDW Standard Deviation 38.6 fL (36.4-46.3); Red Blood Count 3.45 M/uL (4.7-6.1)
[2022-01-05] MEDS: HEPARIN SOD 5,000 UNIT/0.5 ML VIAL SQ SCH ×2 (09:14→20:51)
[2022-01-05] MEDS: DAPTOmycin 500 MG in SYRINGE 0 ML IV SCH (09:14)
[2022-01-05] MEDS: CYANOCOBALAMIN (B-12) 500 MCG TABLET PO SCH (09:14)
[2022-01-05 09:15] LABS: Basophils # (auto) 0.01 K/uL (0-0.2); Eosinophils # (auto) 0.08 K/uL (0-0.5); Eosinophils % (auto) 0.3 %; Immature Granulocytes # (auto) 0.17 K/uL (0.00-0.02); Immature Granulocytes % (auto) 0.7 %; Lymphocytes # (auto) 2.01 K/uL (1.2-3.4); Lymphocytes % (auto) 8.5 %; Monocytes # (auto) 0.04 K/uL (0.11-0.59); Monocytes % (auto) 0.2 %; Neutrophils # (auto) 21.39 K/uL (1.4-6.5); Neutrophils % (auto) 90.3 %
[2022-01-05 09:26] LABS: INR 1.2 (0.9-1.1); Partial Thromboplastin Ratio 1.1; Partial Thromboplastin Time 31.6 Seconds (21.0-31.0); Prothrombin Time 12.4 Seconds (9.0-12.0)
[2022-01-05 09:31] LABS: Albumin Globulin Ratio 0.6 (0.9-2); Albumin Level 2.4 gm/dl (3.4-5.0); BUN Creatinine Ratio 34.1 (10-20); Calcium 8.2 mg/dl (8.5-10.1); Creatinine Clr Calc Pharmacy 37.2 ml/min; Est GFR (African American) 31.1 ml/min; Est GFR (Non-African American) 26.8 ml/min; Globulin 4.2 gm/dl (2.5-4.0); Potassium 4.6 mmol/L (3.5-5.1); Total Protein 6.6 gm/dl (6.0-8.3)
[2022-01-05] MEDS ORDERED: POLYETHYLENE (MIRALAX) 17 GM PACK PO PRN (10:15)
[2022-01-05 12:20] LABS: Estimated Average Glucose 183 mg/dl
[2022-01-05] MEDS: ACETAMINOPHEN 325 MG TAB PO PRN ×3 (14:30→23:16)
--- NOTE | 2022-01-05 15:11 | Orthopedic Consultation ---
Date of Service January 05, 2022 Assessment & Plan (1) Diabetic infection of right foot: He was seen and examined by Dr. Soto today as well. We recommended below knee amputation for this infection. He understands and wants to proceed with amputation. We will make him npo after midnight and plan on surgery tomorrow (01/06/22). Dressing reapplied to the foot. History of Present Illness Reason for Consultation: . Requesting Physician: . Attending Physician: Charles Vo DO . 61 year old patient with a h/o diabetes that was admitted last night for right foot infection. He states he developed a wound on the right foot about 2 weeks ago after walking in some wet boots. He was admitted yesterday and started on some IV antibiotics. He is having some foot pain. No other complaints. Allergies Allergy/AdvReac Type Severity Reaction Status Date / Time No Known Allergies Allergy Verified 01/04/22 20:34 Home Medications Medication Instructions Recorded Confirmed Type amlodipine 5 mg tablet 5 mg PO HS 01/04/22 01/04/22 History cyanocobalamin (vitamin B-12) 2,000 mcg PO DAILY 01/04/22 01/04/22 History 2,000 mcg tablet,extended release dulaglutide 1.5 mg/0.5 mL 0 mg SUBCUT WK 01/04/22 01/04/22 History subcutaneous pen injector (Trulicity) insulin degludec 200 unit/mL (3 0 unit SUBCUT DAILY 01/04/22 01/04/22 History mL) subcutaneous pen (Tresiba FlexTouch U-200 insulin) lisinopril 5 mg tablet 5 mg PO DAILY 01/04/22 01/04/22 History metformin 750 mg tablet,extended 750 mg PO DAILY 01/04/22 01/04/22 History release 24 hr sildenafil 100 mg tablet 50 - 100 mg PO DIRECTED PRN 01/04/22 01/04/22 History Past Med/Surg History Medical History B12 deficiency Diabetes mellitus Hypertension Social History Smoking Status: Never smoker Tobacco Type: Cigarettes Hx Alcohol Use: No Hx Substance Use: No Preferred Language: Moroccan Communication Ability: Effective 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 Physical Exam . Alert and oriented. NAD. Right foot/lower leg: +edema of the lower leg. He has wounds on the lateral and medial sides of the small toe. The lateral wound extends further proximally. There is an odor from the wounds, and purulent drainage. Results & Data Results & Data Laboratory Results . Diagnostic Findings . xrays of the foot were reviewed which show no fractures. There may be some changes to the 4th and 5th metatarsal heads. There is air on the dorsal foot area on the lateral view. Labs were reviewed. PG Care Time/CCT Total # of Minutes Spent Total Time Spent with Patient: Total time spent is greater than 50% in coordination of care (as documented) at patient's floor/unit and/or counseling patient: Coding Level of Care Code 61502 Inpt Consult Level 4 Diagnoses Diabetic infection of right foot E11.628; L08.9
--- NOTE | 2022-01-05 16:39 | Anesthesiology Consultation ---
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 History Surgery Operation Date: 01/06/22 07:00 Proposed Procedures p Right Below Knee Amputation - Ranjeet Soto MD Height/Weight Height: 6 ft 3 in Weight: 94 kg Allergies Allergy/AdvReac Type Severity Reaction Status Date / Time No Known Allergies Allergy Verified 01/04/22 20:34 Medications Home Medications Medication Instructions Recorded Confirmed Last Taken amlodipine 5 mg tablet 5 mg PO HS 01/04/22 01/04/22 01/03/22 cyanocobalamin (vitamin B-12) 2,000 mcg PO DAILY 01/04/22 01/04/22 01/04/22 2,000 mcg tablet,extended release dulaglutide 1.5 mg/0.5 mL 0 mg SUBCUT WK 01/04/22 01/04/22 01/01/22 subcutaneous pen injector (Trulicity) insulin degludec 200 unit/mL (3 0 unit SUBCUT DAILY 01/04/22 01/04/22 01/04/22 mL) subcutaneous pen (StockLayoutssiBluefly FlexTouch U-200 insulin) lisinopril 5 mg tablet 5 mg PO DAILY 01/04/22 01/04/22 01/04/22 metformin 750 mg tablet,extended 750 mg PO DAILY 01/04/22 01/04/22 01/04/22 release 24 hr sildenafil 100 mg tablet 50 - 100 mg PO DIRECTED PRN 01/04/22 01/04/22 Unknown Active Medications Generic Name Dose Route Start Last Admin Trade Name Franoc PRN Reason Stop Dose Admin Cyanocobalamin 2,000 mcg 01/05/22 09:00 01/05/22 09:14 Cyanocobalamin (B-12) 500 Mcg Tablet PO 02/04/22 08:59 2,000 mcg DAILY TORIBIO Administration Heparin Sodium (Porcine) 5,000 units 01/05/22 09:00 01/05/22 09:14 Heparin Sod 5,000 Unit/0.5 Ml Vial SQ 02/04/22 08:59 5,000 units Q12 TORIBIO Administration Daptomycin 500 mg/ Syringe 10 mls @ 5 mls/min 01/05/22 09:00 01/05/22 09:14 IV 01/12/22 08:59 5 mls/min Q24H TORIBIO Administration Protocol Piperacillin Sod/Tazobactam 115 mls @ 28.75 mls/hr 01/05/22 02:00 01/05/22 15:34 Sod 3.375 gm/ Dextrose IV 01/12/22 01:59 Infused Q8H [facility] Infusion Protocol Insulin Aspart 0 units 01/05/22 06:30 01/05/22 13:44 Insulin Aspart Per Unit SC 02/04/22 06:29 7 units Q6 [facility] Administration Miscellaneous 1 ea 01/05/22 08:00 01/05/22 15:39 Dulaglutide [Trulicity] - Order Awaiting Action N/A 02/04/22 07:59 Not Given QS [facility] Past Medical History Medical History B12 deficiency Diabetes mellitus Hypertension Social History Smoking Status: Never smoker Hx Alcohol Use: No Hx Substance Use: No Physical Exam Vital Signs Last Vital Signs Temp 101.1 F H 01/05/22 15:04 Pulse 106 H 01/05/22 15:04 Resp 18 01/05/22 15:04 BP 165/68 H 01/05/22 15:04 Pulse Ox 92 01/05/22 15:04 Testing Laboratory Results 01/05/22 08:42 01/05/22 08:42 PT 12.4 Seconds (9.0-12.0) H 01/05/22 08:42 INR 1.2 (0.9-1.1) H 01/05/22 08:42 APTT 31.6 Seconds (21.0-31.0) H 01/05/22 08:42 Hemoglobin A1c 8.0 % (4.5-5.6) H 01/05/22 08:42 01/04/22 19:50 Gram Stain - Final Foot,Right Wound Culture - Preliminary Pin-point growth present, reincubating. 01/05/22 01/05/22 12:06 06:13 POC Glucose 248 H 285 H Electrocardiogram Date: 01/05/22 Sinus tachycardia, rate 111 bpm Possible Left atrial enlargement Borderline ECG No previous ECGs available
[2022-01-05] MEDS ORDERED: ACETAMINOPHEN 325 MG TAB PO STA (16:48)
[2022-01-05] MEDS: METOPROLOL TARTRATE 50 MG TAB PO SCH (18:24)
--- NOTE | 2022-01-05 19:16 | Billing Data ---
Date of Service January 05, 2022 Coding Level of Care Code 51151 Subseq Hosp Care Lvl 3
[2022-01-05] MEDS: INSULIN GLARGINE SOLOSTAR 100 UNITS/ML 3 ML PEN SC SCH (20:51)
[2022-01-05] MEDS: amLODIPine BESYLATE 5 MG TAB PO SCH (20:51)
[2022-01-06] MEDS: INSULIN ASPART PER UNIT SC SCH ×5 (00:03→21:07)
[2022-01-06] MEDS ORDERED: SODIUM CHLORIDE 0.9% 1000ML 1,000 ML IV SCH (00:30)
[2022-01-06] MEDS: PIPERACILLIN/TAZOBACTAM 3.375 GM in DEXTROSE 5% 100 ML IV SCH ×3 (00:57→18:09)
--- NOTE | 2022-01-06 07:04 | Electrocardiogram Report ---
Test Reason : Blood Pressure : / mmHG Vent. Rate : 111 BPM Atrial Rate : 111 BPM P-R Int : 116 ms QRS Dur : 090 ms QT Int : 324 ms P-R-T Axes : 047 -29 051 degrees QTc Int : 440 ms Sinus tachycardia Possible Left atrial enlargement Borderline ECG No previous ECGs available Confirmed by Ezekiel Lovelace ([id number]) on 01/06/2022 7:04:34 AM Referred By: REFERRED SELF Confirmed By:Ezekiel Lovelace
[2022-01-06] MEDS: HEPARIN SOD 5,000 UNIT/0.5 ML VIAL SQ SCH ×2 (08:26→20:20)
[2022-01-06] MEDS: ACETAMINOPHEN 325 MG TAB PO PRN (08:36)
[2022-01-06] MEDS: METOPROLOL TARTRATE 50 MG TAB PO SCH ×2 (08:36→20:19)
[2022-01-06] MEDS: CYANOCOBALAMIN (B-12) 500 MCG TABLET PO SCH (08:37)
[2022-01-06] MEDS: INSULIN GLARGINE SOLOSTAR 100 UNITS/ML 3 ML PEN SC SCH ×2 (08:37→21:08)
[2022-01-06] MEDS: DAPTOmycin 500 MG in SYRINGE 0 ML IV SCH (08:37)
--- NOTE | 2022-01-06 09:08 | Hospitalist Progress Note ---
Date of Service January 06, 2022 Assessment & Plan (1) Gas gangrene of foot: Plan: 61yo Male PMH poorly controlled DM2, HTN, B12 deficiency here for right foot gangrene (1) Diabetic infection of right foot: Right foot diabetic infection/gas gangrene Given vancomycin IV and Zosyn IV in ED, switched to Daptomycin 6 mg/kg IV every 24 hours, and Zosyn 4.5 g IV every 8 hours WBC 28.33 --> 22.62 Ordered tylenol 650mg scheduled q6h given persistent fever Consulted orthopedic surgery THIERNO García scheduled today (2) Gas gangrene of foot: See above (3) Renal insufficiency, likely CKD: Creatinine 2.65 upon admission, with no baseline --> recheck 2.71 Bicarbonate 17 on admission, recheck 21 Placed on bicarb drip, bicarb d/c'd Started NSS 80ml/h (4) Sepsis: Sepsis secondary to diabetic foot infection, treat as above Procal 15.28 CRP 46.51 MRSA nares neg Bcx pending (5) Acute hyponatremia: Sodium 125 on admission, corrected for hyperglycemia 131 Serum osmolality 309, urine osmolality 446 recheck sodium 130 (6) Diabetes mellitus: Glucose 354 on admission, poor glycemic control, poor understanding of diabetes A1c 8.0 Placed on glargine 14 units subcu Accu-Cheks before meals and at bedtime with NovoLog coverage per scale Hold metformin and Trulicity Adjust glargine dose based on above response consult glycemic education (7) Hypertension: Hold lisinopril due to renal insufficiency Metoprolol tartrate 50 mg p.o. twice daily (8) B12 deficiency: Continue supplement 2000 mcg p.o. daily FENa: carb consistent, curently NPO until post surgery Code Status: Full DVT PPX: heparin PT/OT: none, consider post surgery Case Management: pending Dispo: med/surg Elsa Arce Do PGY 2, FCM (2) Renal insufficiency: (3) Diabetes mellitus: (4) Hypertension: (5) B12 deficiency: (6) Diabetic infection of right foot: (7) DEENA (acute kidney injury): (8) Sepsis: (9) Acute hyponatremia: Admission and Anticipated Discharge Date Admission Date: January 04, 2022 Supervising Physician Co-Signing Physician Notes Case discussed with Dr. Arcepatient was downstairs for surgery by the time I was able to try to see him, and therefore I was unable to physically round on him today. Chart reviewed Case discussed with resident physician. Diabetic foot infection/gangrene with sepsis present on admission daptomycin and Zosyn4 OR today. Sepsis appears fortunately overall stable but not improvinghence the need for OR to clarify if its sepsis versus severe sepsis given that its unclear what his baseline creatinine is. We will try to reach out to PCP to get a better feel for his baseline, for now could assume that it is an DEENA which would quantify as severe sepsisbut again this is not entirely clear. Continue to follow closely, continue supportive care Uncontrolled type 2 diabetesdiscussed "why to care" (progressive hyperglycemia leading to microvascular ischemia)for now inpatient management with insulin titrate. Ongoing education. Otherwise as above. Subjective Patient seen at bedside, shivering depressed mood noted. He states he does not feel a fever, is unsure if his shivering is from anxiety or fever. Patient states he still has pain on palpation of his right leg. He understands the need for his foot amputation, states his daughter visited last night and they were able to discuss his procedure. Review of Systems Review of Systems: Positive chills Negative fever Negative headache dizziness Negative chest pain palpitations SOB Negative nausea vomitting diarrhea constipation Negative numbness tingling rash Physical Exam Constitutional: WD/WN, vitals as above Eyes: PERRL, conjunctivae normal, anicteric sclerae ENMT: external ear and nose normal, oropharynx normal Neck: trachea midline, no thyromegaly Respiratory: normal respiratory effort, lungs clear to auscultation Cardiovascular: RRR, no murmur, no edema Chest (Breasts): Chest: normal inspection of chest Gastrointestinal (Abdomen): normal bowel sounds, soft, nontender, no hepatosplenomegaly Skin: gangrene noted on right lateral foot, noted onychomycosis on all toenails, +3 pitting edema on legs up to thigh R>L tender to palpation increased warmth noted Results & Data Results & Data ([facility]) Vital Signs (Past 12 Hours) Vital Signs Temp Pulse Resp BP Pulse Ox 01/06/22 07:15 37.4 C 98 H 16 132/69 97 01/06/22 06:19 37.7 C H 100 H 131/61 96 01/05/22 23:50 36.7 C 01/05/22 23:00 38.9 C H 97 H 22 138/70 97 Diagnostic Findings Laboratory Results WBC 22.62 K/uL (4.8-10.8) H 01/06/22 09:10 RBC 3.29 M/uL (4.7-6.1) L 01/06/22 09:10 Hgb 8.9 g/dL (14.0-18.0) L 01/06/22 09:10 Hct 25.7 % (42-52) L 01/06/22 09:10 MCV 78.1 fL (80-100) L 01/06/22 09:10 MCH 27.1 pg (25-34) 01/06/22 09:10 MCHC 34.6 g/dL (32-36) 01/06/22 09:10 RDW Std Deviation 38.6 fL (36.4-46.3) 01/06/22 09:10 RDW Coeff of Radha 13.5 % (11.5-14.5) 01/06/22 09:10 Plt Count 318 K/uL (130-400) 01/06/22 09:10 MPV 9.4 fL (7.4-10.4) 01/06/22 09:10 Immature Gran % (Auto) 1.1 % 01/06/22 09:10 Neut % (Auto) 87.8 % 01/06/22 09:10 Lymph % (Auto) 7.0 % 01/06/22 09:10 [place] % (Auto) 3.5 % 01/06/22 09:10 Eos % (Auto) 0.5 % 01/06/22 09:10 Baso % (Auto) 0.1 % 01/06/22 09:10 Neut # (Auto) 19.86 K/uL (1.4-6.5) H 01/06/22 09:10 Lymph # (Auto) 1.58 K/uL (1.2-3.4) 01/06/22 09:10 [place] # (Auto) 0.80 K/uL (0.11-0.59) H 01/06/22 09:10 Eos # (Auto) 0.12 K/uL (0-0.5) 01/06/22 09:10 Baso # (Auto) 0.02 K/uL (0-0.2) 01/06/22 09:10 Immature Gran # (Auto) 0.24 K/uL (0.00-0.02) H 01/06/22 09:10 ESR 97 mm/hr (0-20) H 01/04/22 19:50 PT 12.4 Seconds (9.0-12.0) H 01/05/22 08:42 INR 1.2 (0.9-1.1) H 01/05/22 08:42 APTT 31.6 Seconds (21.0-31.0) H 01/05/22 08:42 PTT Ratio 1.1 01/05/22 08:42 Sodium 130 mmol/L (136-145) L 01/06/22 09:10 Potassium 3.9 mmol/L (3.5-5.1) 01/06/22 09:10 Chloride 100 mmol/L (98-107) 01/06/22 09:10 Carbon Dioxide 21 mmol/L (21-32) 01/06/22 09:10 Anion Gap 9 (3-11) 01/06/22 09:10 BUN 78 mg/dl (6-23) H 01/06/22 09:10 Creatinine 2.71 mg/dl (0.6-1.4) H 01/06/22 09:10 Est Cr Clr Drug Dosing 34.2 ml/min 01/06/22 09:10 Est GFR ( Amer) 28.1 ml/min 01/06/22 09:10 Est GFR (Non-Af Amer) 24.2 ml/min 01/06/22 09:10 BUN/Creatinine Ratio 28.8 (10-20) H 01/06/22 09:10 Glucose 192 mg/dl (70-99(Fasting)) H 01/06/22 09:10 POC Glucose 199 mg/dl (70-99) H 01/06/22 11:58 Estimat Average Glucose 183 mg/dl 01/05/22 08:42 Hemoglobin A1c 8.0 % (4.5-5.6) H 01/05/22 08:42 Osmolality 309 mOsm/kg (280-300) H 01/04/22 20:02 Lactate 1.4 mmol/L (0.4-2.0) 01/04/22 19:50 Calcium 7.8 mg/dl (8.5-10.1) L 01/06/22 09:10 Total Bilirubin 1.0 mg/dl (0.2-1.0) 01/05/22 08:42 AST 15 U/L (13-39) 01/05/22 08:42 ALT 17 U/L (7-52) 01/05/22 08:42 Alkaline Phosphatase 191 U/L (34-104) H 01/05/22 08:42 C-Reactive Protein 46.51 mg/dl (0-0.5) H 01/04/22 19:50 Total Protein 6.6 gm/dl (6.0-8.3) 01/05/22 08:42 Albumin 2.4 gm/dl (3.4-5.0) L 01/05/22 08:42 Globulin 4.2 gm/dl (2.5-4.0) H 01/05/22 08:42 Albumin/Globulin Ratio 0.6 (0.9-2) L 01/05/22 08:42 Lipase 42 U/L (11-82) 01/04/22 19:50 Procalcitonin 15.28 ng/ml (0-0.5) H 01/04/22 19:50 Urine Osmolality 446 mOsm/kg (500-800) L 01/05/22 14:40 Nasal Screen MRSA (PCR) Negative (Negative) 01/04/22 20:08 Hepatitis C Ab (EIA) REACTIVE (NON-REACTIVE) A 01/05/22 08:42 Hep C Ab Signal/Cutoff 1.39 (<1.00) H 01/05/22 08:42 SARS-CoV-2, RNA, NAAT NEGATIVE (NEGATIVE) 01/04/22 20:48 Blood Type B Positive 01/06/22 14:49 Antibody Screen NEGATIVE 01/06/22 14:49 Impressions Foot X-Ray 01/04/22 19:46 XR foot RT min 3V routine CLINICAL HISTORY: lateral wound. COMPARISON STUDY: No previous studies for comparison. TECHNIQUE: 3 right foot views FINDINGS: Bones: There is no definite radiographic evidence for osteomyelitis. There is no evidence for an acute fracture or dislocation. There is no lytic or blastic lesion. Joints: There is narrowing of the fourth and fifth MTP joints The bones are in anatomic alignment. Soft tissues: There is extensive soft tissue swelling along the dorsum and lateral aspect of the foot. Air is seen tracking along the deep fascial plane. The findings are most characteristic of gastroenteritis. There is no radiopaque foreign body. IMPRESSION: 1. 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 2. No definite radiographic evidence for osteomyelitis. ACT 112: Negative or not required by law. Electronically signed by: Maxime Pelayo M.D. 01/04/2022 8:22 PM Duplex Scan Lower Extremity Artery 01/04/22 22:41 RIGHT LOWER EXTREMITY ARTERIAL DOPPLER ULTRASOUND CLINICAL HISTORY: diabetic foot ulcer COMPARISON STUDY: No previous studies for comparison. TECHNIQUE: Color and duplex Doppler sonography of the arterial system of the right lower extremity was performed. FINDINGS: Prominent right groin nodes have benign imaging characteristics. There is triphasic flow within the right common femoral artery as well as the right profunda. There is also triphasic flow within the proximal to mid superficial femoral artery. Mild atherosclerotic plaque is noted. No elevated velocities are identified. There is monophasic flow within the right popliteal, posterior tibial, anterior tibial, peroneal and dorsalis pedis vessels. Waveforms within the right dorsalis pedis are markedly dampened. Right lower extremity subcutaneous edema is incidentally noted. IMPRESSION: 1. Monophasic flow within the right calf vessels, as above. 2. No evidence for a hemodynamically significant stenosis within the right lower extremity. Mild atherosclerotic plaque. 3. No evidence for inflow disease. ACT 112: Negative or not required by law. Electronically signed by: Quentin Falcon M.D. 01/05/2022 7:24 AM Medications Administered Current Inpatient Medications Acetaminophen (Acetaminophen 325 Mg Tab) 650 mg PO Q6 TORIBIO Stop: 02/05/22 17:59 Amlodipine Besylate (Amlodipine Besylate 5 Mg Tab) 5 mg PO HS TORIBIO Stop: 02/04/22 20:59 Last Admin: 01/05/22 20:51 Dose: 5 mg Documented by: Atropine Sulfate (Atropine Sulfate 0.1 Mg/Ml 10ml Syr) 0.5 mg IV Q1M PRN PRN Reason: PACU Use-HR<40 &/or Bradycardi Stop: 01/06/22 23:04 Cyanocobalamin (Cyanocobalamin (B-12) 500 Mcg Tablet) 2,000 mcg PO DAILY TORIBIO Stop: 02/04/22 08:59 Last Admin: 01/06/22 08:37 Dose: 2,000 mcg Documented by: Dextrose (Dextrose 50% 50 Ml Syringe) 25 - 50 ml IV UD PRN; Protocol PRN Reason: Hypoglycemia Protocol Stop: 02/04/22 00:06 Ephedrine Sulfate (Ephedrine Sulfate 50 Mg/Ml Amp) 5 mg IV Q5M PRN PRN Reason: PACU Use Only-SBP<90 mmHg Stop: 01/06/22 23:04 Fentanyl Citrate (Fentanyl Citrate 100 Mcg/2 Ml Vial) 50 mcg IV Q5M PRN PRN Reason: PACU Use Only-Pain Stop: 01/06/22 23:04 Glucagon (Glucagon For Inj 1 Mg Vial) 1 mg SQ UD PRN; Protocol PRN Reason: Hypoglycemia Protocol Stop: 02/04/22 00:06 Glucose (Glucose 10 Tabs/Tube) 4 - 8 tabs PO UD PRN; Protocol PRN Reason: Hypoglycemia Protocol Stop: 02/04/22 00:06 Glucose (Glucose 40% Gel 15 Gm Tube) 15 - 30 gm PO UD PRN; Protocol PRN Reason: Hypoglycemia Protocol Stop: 02/04/22 00:06 Heparin Sodium (Porcine) (Heparin Sod 5,000 Unit/0.5 Ml Vial) 5,000 units SQ Q12 TORIBIO Stop: 02/04/22 08:59 Last Admin: 01/06/22 08:26 Dose: Not Given Documented by: Hydromorphone HCl (Hydromorphone Inj 2 Mg/Ml Syr/Vial) 0.5 mg IV Q5M PRN PRN Reason: PACU Use Only-Pain Stop: 01/06/22 23:04 Daptomycin 500 mg/ Syringe 10 mls @ 5 mls/min IV Q24H TORIBIO; Protocol Stop: 01/12/22 08:59 Last Admin: 01/06/22 08:37 Dose: 5 mls/min Documented by: Piperacillin Sod/Tazobactam (Sod 3.375 gm/ Dextrose) 115 mls @ 28.75 mls/hr IV Q8H TORIBIO; Protocol Stop: 01/12/22 01:59 Last Infusion: 01/06/22 14:16 Dose: Infused Documented by: Sodium Chloride (Nss 1000ml) 1,000 mls @ 80 mls/hr IV .[id number] TORIBIO Stop: 01/08/22 15:29 Last Admin: 01/06/22 13:33 Dose: 80 mls/hr Documented by: Insulin Aspart (Insulin Aspart Per Unit) 0 units SC Q6 [facility] Stop: 02/04/22 06:29 Last Admin: 01/06/22 12:42 Dose: 2 units Documented by: Insulin Glargine (Insulin Glargine Solostar 100 Units/Ml 3 Ml Pen) 10 units SC BID [facility] Stop: 02/04/22 20:59 Last Admin: 01/06/22 08:37 Dose: 5 units Documented by: Lisinopril (Lisinopril 5 Mg Tab) 5 mg PO DAILY [facility] Stop: 02/04/22 08:59 Metoprolol Tartrate (Metoprolol Tartrate 50 Mg Tab) 50 mg PO BID [facility] Stop: 02/04/22 17:59 Last Admin: 01/06/22 08:36 Dose: 50 mg Documented by: Miscellaneous (Dulaglutide [Trulicity] - Order Awaiting Action) 1 ea N/A QS [facility] Stop: 02/04/22 07:59 Last Admin: 01/06/22 15:16 Dose: Not Given Documented by: Miscellaneous (Carbohydrates For Hypoglycemia ) 15 - 30 gm PO UD PRN PRN Reason: Hypoglycemia Protocol Stop: 02/04/22 00:06 Ondansetron HCl (Ondansetron Inj 2 Mg/Ml 2 Ml Vial) 4 mg IV Q6H PRN PRN Reason: Nausea Stop: 02/04/22 00:06 Ondansetron HCl (Ondansetron Inj 2 Mg/Ml 2 Ml Vial) 4 mg IV ONCE PRN PRN Reason: PACU Use Only-Nausea/Vomiting Stop: 01/06/22 23:05 Polyethylene Glycol (Polyethylene (Miralax) 17 Gm Pack) 17 gm PO DAILY PRN PRN Reason: Constipation Stop: 02/04/22 10:14 Resident Activity Tracking Resident Involvement: Resident Care Provided Care Provided: Adult Hospital Medicine (1) Sepsis Sepsis acute organ dysfunction status: with acute organ dysfunction Sepsis type: sepsis due to unspecified organism Severe sepsis acute organ dysfunction type: unspecified Severe sepsis shock status: without septic shock Qualified Code(s): A41.9 - Sepsis, unspecified organism; R65.20 - Severe sepsis without septic shock
[2022-01-06 09:35] LABS: Basophils # (auto) 0.02 K/uL (0-0.2); Basophils % (auto) 0.1 %; Eosinophils # (auto) 0.12 K/uL (0-0.5); Eosinophils % (auto) 0.5 %; Hematocrit (blood only) 25.7 % (42-52); Hemoglobin 8.9 g/dL (14.0-18.0); Immature Granulocytes # (auto) 0.24 K/uL (0.00-0.02); Immature Granulocytes % (auto) 1.1 %; Lymphocytes # (auto) 1.58 K/uL (1.2-3.4); Mean Corpuscular Hemoglobin 27.1 pg (25-34); Mean Corpuscular Hgb Conc 34.6 g/dL (32-36); Mean Corpuscular Volume 78.1 fL (80-100); Mean Platelet Volume 9.4 fL (7.4-10.4); Monocytes % (auto) 3.5 %; Neutrophils # (auto) 19.86 K/uL (1.4-6.5); Neutrophils % (auto) 87.8 %; Platelet Count 318 K/uL (130-400); RDW Coefficient of Variation 13.5 % (11.5-14.5); RDW Standard Deviation 38.6 fL (36.4-46.3); Red Blood Count 3.29 M/uL (4.7-6.1); White Blood Count 22.62 K/uL (4.8-10.8)
[2022-01-06 09:56] LABS: Est GFR (African American) 28.1 ml/min; Est GFR (Non-African American) 24.2 ml/min; Potassium 3.9 mmol/L (3.5-5.1)
[2022-01-06 09:57] LABS: BUN Creatinine Ratio 28.8 (10-20); Calcium 7.8 mg/dl (8.5-10.1); Creatinine Clr Calc Pharmacy 34.2 ml/min
[2022-01-06] MEDS: SODIUM CHLORIDE 0.9% 1000ML 1,000 ML IV SCH (13:33)
[2022-01-06] MEDS ORDERED: BUPIVACAINE/EPINEPHRINE 0.25% 1:200,000 30 ML VIAL ONE (14:40)
[2022-01-06] MEDS ORDERED: EPINEPHrine INJ 1 MG/ML AMP ONE (14:40)
[2022-01-06] MEDS ORDERED: BUPIVACAINE 0.5 % 5 MG/1 ML MPF 30ML VIAL ONE (14:40)
--- NOTE | 2022-01-06 14:50 | History & Physical Bridge Note ---
Date of Service January 06, 2022 History & Physical Bridge Note I have examined the patient, reviewed the History & Physical and in the interval since the performance of the History & Physical I have noted the following changes of clinical significance: no changes noted. I reviewed the risks and benefits of proceeding with a right below knee amputation surgery. Informed consent was documented in the preop holding area. I also called and discussed risks, benefits, expected recovery, and postoperative plan with his daughter, Edilberto. All in agreement to proceed today. Patient is aware of COVID-19 risks. Patient is asymptomatic for COVID-19. Patient has been tested for COVID-19 - [NEGATIVE].
[2022-01-06] MEDS ORDERED: fentaNYL citrate 100 MCG/2 ML VIAL ONE ×2 (14:55→15:47)
[2022-01-06] MEDS ORDERED: MIDAZOLAM HCL 1 MG/ML 2ML VIAL ONE (14:55)
[2022-01-06] MEDS ORDERED: fentaNYL citrate 100 MCG/2 ML VIAL IV PRN (15:04)
[2022-01-06] MEDS ORDERED: ATROPINE SULFATE 0.1 MG/ML 10ML SYR IV PRN (15:04)
[2022-01-06] MEDS ORDERED: HYDROmorphone INJ 2 MG/ML SYR/VIAL IV PRN (15:04)
[2022-01-06] MEDS ORDERED: ePHEDrine sulfate 50 MG/ML AMP IV PRN (15:04)
[2022-01-06] MEDS ORDERED: ONDANSETRON INJ 2 MG/ML 2 ML VIAL IV PRN (15:04)
[2022-01-06] MEDS ORDERED: PHENYLEPHRINE HCL 10 MG/ML VIAL ONE (15:30)
[2022-01-06] MEDS ORDERED: HYDROmorphone INJ 1 MG/ML SYRINGE ONE (16:13)
[2022-01-06] MEDS ORDERED: ONDANSETRON INJ 2 MG/ML 2 ML VIAL ONE (17:14)
--- NOTE | 2022-01-06 17:50 | Operative Report ---
PG Post Operative Report Pre & Post Diagnosis Operation Date: 01/06/22 07:00 Pre-Op Diagnosis: (1) Diabetic infection of right foot: Post-Op Diagnosis: (1) Diabetic infection of right foot: I identified the patient and participated in the time-out.: Yes Procedure Operation Date: 01/06/22 07:00 Actual Procedures p Right Below Knee Amputation(Right) - Jelani Martínez MD Surgeon Jelani Martínez MD Welder/Fitter Juancarlos Lee PA-C Estimated Blood Loss 50 Findings Consistent with Post-Op Diagnosis Specimens none Anesthesia Type General Complications none Disposition Accompanied Patient To Recovery: No Disposition: Recovery Room Indications 61-year-old male who developed a deep ulcerative wound over the lateral border of his foot that 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 He was evaluated by my partner and myself. We both recommended amputation of the foot due to the nature of the infection and the involvement of the entirety of the foot. He has loss of sensation over his heel. He was admitted medicine for optimization of blood sugar glucose management. I saw him in the preop area and reviewed the surgical plan my partner introduced. We discussed a below-knee amputation would eradicate the infection. He will require antibiotics for completion following surgery. We discussed the complications of below-knee amputation and include but are not limited to infection that persists, need for repeat or revision amputation, wound healing complications, phantom limb pain, other pain syndromes, blood clots, and complications related to anesthesia. He asked appropriate questions, demonstrated a good understanding, and elected to proceed with surgery. Also, discussed the plan with his daughter by phone today. Informed consent was obtained in the preoperative holding area. Description of Procedure On the day of surgery, the patient was greeted in the preoperative holding area. The informed consent was reviewed and confirmed by myself and the patient. The patient identified the surgical site and was marked by me. The patient was then turned over to anesthesia. He was taken to the operating room and placed supine on the OR table. Anesthesia was induced and the airway was secured. Antibiotics have been scheduled from the floor. The right lower extremity then was prepared for surgery. The wound was evaluated. It was extensive and down to bone. The wound was then dressed with Ioban. Nonsterile barrier drapes were placed around the ankle and proximal thigh just below a nonsterile thigh tourniquet. The right lower extremity was then prepped and draped in usual sterile fashion. A stockinette was placed over the distal limb. Surgical timeout was called by the circulating nurse, and verified by all present. Antibiotics have been infused and equipment was available and functional. The limb was then elevated until the tourniquet was inflated to 250 mmHg for a total of 90 minutes. Skin flaps were planned out. 16 cm residual length was planned. Skin incision was made using a 10 blade. Bovie electrocautery was used for hemostasis down through subcutaneous tissues. I incised to the anterior fascia to expose the anterior distal tibia. Bovie was used down through the anterior compartment until the peroneal vasculature was encountered. The deep peroneal nerve was put on traction and neurolysed using cautery proximally under traction so that it would retract into the soft tissues. The artery and vessel were double ligated using 2-0 silk suture before cauterization. The superficial peroneal nerve was identified, placed on traction, neurolysed using cautery. The soft tissues dissected around the tibia. We planned our osteotomy level and carried out using the sagittal saw. The ends of the bone was then softened using the backside of the sagittal saw and rasped. The anterior lateral compartment was then dissected to reveal the fibula. Fibula was resected 2 cm shorter using the sagittal saw the similar format. We then flexed the lower extremity through the osteotomy sites to reveal the posterior compartments. An amputation knife blade was then used just posterior to the tibia and fibula distally and used to create a posterior muscular flap. This was brought down to the premarked incision and carried through the skin posteriorly. Electrocautery was used for hemostasis. We then provisionally reduced the skin and muscle flap. Seen with adequate coverage. We dissected through the gastroc flaps to reveal the posterior tibial artery, nerve, vein. The nerve was neurolysed under traction use electrocautery to retract in the soft tissues. The artery and vein were both individually double ligated before distal cauterization. The distal limbs of the structures were excised. The posterior skin flap was then provisionally reduced. We did reduce the muscle bulk of the gastroc to allow better apposition due to his muscular size. The anterior compartment was reduced back as well. It seemed a bit tight. For that reason I shortened the tibia by about another centimeter. The fibula was shortened as well. Thorough irrigation of the total of 2 L was carried out. All bony debris was thoroughly washed. We then began our myoplasty. #5 Ethibond suture was used to hold the posterior gastroc flap to the anterior tibial fascia. A 10 Lao round drain was then placed underneath the muscle flap along the end of the bones and exited more proximally in the anterior lateral aspect of the leg. We then used multiple [id number] #1 Vicryl stitches to complete the myoplasty and cover up the bone ends. The sural nerve is visible in the backside of the gastroc flap. It was neurolysed in similar traction fashion. We then began to close skin. Trauma style nylon was placed to reduce the skin flap from posterior to anterior. I resected dogears on both sides using the knife. We then used 2-0 Vicryl stitches in the deep dermal layer to approximate the skin. Final closure consisted of 2-0 nylon stitches in a vertical mattress fashion. The drain was placed in its final position after being cut to appropriate length. It was hooked to suction Hemovac collection device and maintain suction well. The tourniquet was let down. There was evidence of adequate hemostasis. There was no collection of blood into the Hemovac drain, which maintained suction. The wound was dressed with sterile Xeroform, plain gauze, multiple ABDs and wrapped with level before final closure using amputation wrap with Jose wraps. The patient tolerated the procedure well, was extubated in the operating without complication, and transferred to the recovery area in stable condition. Disposition: He will remain an inpatient for tight blood sugar control, pain management,and wound monitoring. He should be on antibiotics for minimum of 2 weeks to cover for the original deep culture taken in the ER. DVT prophylaxis should include mechanical and chemoprophylaxis for up to 6 weeks. He is nonweightbearing on the residual limb until wound healing. Typically weightbearing and prosthetic fitting can begin around 3 weeks. Dressing will be taken down on 01/10 by orthopedic surgery. Until then, the dressing could be reinforced. Physician hr assistant attestation: Juancarlos Lee PA-C was present and scrubbed for the duration of the case. He was essential to prepping/draping, patient positioning, retraction, and assistance with wound closure. I attest to the content of the Intraoperative Record and any orders documented therein. Any exceptions are noted below.
[2022-01-06] MEDS ORDERED: oxyCODONE HCL IR 5 MG TAB (IMMEDIATE RELEASE) PO PRN (18:05)
[2022-01-06] MEDS ORDERED: HYDROmorphone INJ 0.5 MG/0.5 ML SYR IV PRN (18:05)
--- NOTE | 2022-01-06 18:07 | Anesthesiology Progress Note ---
Date of Service January 06, 2022 Anesthesia Post Procedure Vital Signs Vital Signs: Temp Pulse Pulse Resp BP BP Pulse Ox 01/06/22 17:55 36.4 C L 84 16 149/63 H 95 01/06/22 17:45 84 16 146/64 H 94 01/06/22 17:35 36.3 C L 84 16 135/62 97 01/06/22 14:30 37.7 C H 87 18 138/65 98 01/06/22 07:15 37.4 C 98 H 16 132/69 97 01/06/22 06:19 37.7 C H 100 H 131/61 96 01/05/22 23:50 36.7 C 01/05/22 23:00 38.9 C H 97 H 22 138/70 97 Transfer of Care Handoff Completed per policy Notes Mental Status: alert / awake / arousable and participated in evaluation Patient Amnestic to Procedure: Yes Nausea / Vomiting: adequately controlled Pain: adequately controlled Airway Patency, RR, SpO2: stable & adequate BP & HR: stable & adequate Hydration State: stable & adequate Anesthetic Complications: no major complications apparent and Pt Satisfied with anesthetic care
[2022-01-06] MEDS: ACETAMINOPHEN 325 MG TAB PO SCH ×2 (18:10→22:35)
[2022-01-06] MEDS ORDERED: Nursing to Pharmacy Communication SCH (18:15)
[2022-01-06] MEDS: oxyCODONE HCL IR 5 MG TAB (IMMEDIATE RELEASE) PO PRN (19:23)
[2022-01-06] MEDS: amLODIPine BESYLATE 5 MG TAB PO SCH (20:19)
[2022-01-07] MEDS: SODIUM CHLORIDE 0.9% 1000ML 1,000 ML IV SCH ×2 (01:42→15:21)
[2022-01-07] MEDS: PIPERACILLIN/TAZOBACTAM 3.375 GM in DEXTROSE 5% 100 ML IV SCH ×3 (01:43→18:13)
[2022-01-07] MEDS: oxyCODONE HCL IR 5 MG TAB (IMMEDIATE RELEASE) PO PRN (01:48)
--- NOTE | 2022-01-07 04:48 | Communication Note ---
Date of Service: January 07, 2022 has not voided since return from surgery. bladder scan 384 over 8 hours now.
[2022-01-07] MEDS: ACETAMINOPHEN 325 MG TAB PO SCH ×3 (05:40→18:13)
--- NOTE | 2022-01-07 06:48 | Hospitalist Progress Note ---
Date of Service January 07, 2022 Assessment & Plan (1) Gas gangrene of foot: Plan: 61yo Male PMH poorly controlled DM2, HTN, B12 deficiency here for right foot gangrene (1) Diabetic infection of right foot: Right foot diabetic infection/gas gangrene Given vancomycin IV and Zosyn IV in ED, switched to Daptomycin 6 mg/kg IV every 24 hours, and Zosyn 4.5 g IV every 8 hours Ordered tylenol 650mg scheduled q6h Consulted orthopedic surgery Dr. Soto, BKA 01/06 WBC 28.33 --> 20.81 ()Decreased Temperature -noted temp below 35 degrees C 01/07 -likely 2/2 to equipment malfunction, however evaluate for hemorrhage sepsis hypothermia -HR RR wnl, BP mildly soft 113/55 -patient on metoprolol -hbg 10 --> 8.3, no noted compensitory increase in HR to indicate hemorrhage however is on beta alyssia -patient WBC downtrending slowly BKA yesterday to remove infection source, orde red repeat bcx to rule out secondary infection source -patient did not void since procedure yesterday 300cc scanned in bladder, no decrease in RR to indicated hypothermia -repeat temp measure 36.1 -patient transferred to med/tele for closer monitoring -If patient has persistent decreased body temp, consider starting levoquin for double gram negative coverage. (2) Gas gangrene of foot: See above (3) Renal insufficiency, likely CKD: Creatinine 2.65 upon admission, with no baseline --> recheck 2.66 given no improvement on fluids, likely CKD Bicarbonate 17 on admission, recheck 21 Placed on bicarb drip, bicarb d/c'd Started NSS 80ml/h (4) Sepsis: Sepsis secondary to diabetic foot infection, treat as above Procal 15.28 CRP 46.51 MRSA nares neg Bcx pending surface culture group B strep (5) Acute hyponatremia: Sodium 125 on admission, corrected for hyperglycemia 131 Serum osmolality 309, urine osmolality 446 recheck sodium 129 (6) Diabetes mellitus: Glucose 354 on admission, poor glycemic control, poor understanding of diabetes A1c 8.0 Placed on glargine 14 units subcu --> currently 10 BID Accu-Cheks before meals and at bedtime with NovoLog coverage per scale Hold metformin and Trulicity Adjust glargine dose based on above response consult glycemic education (7) Hypertension: Hold lisinopril due to renal insufficiency Metoprolol tartrate 50 mg p.o. twice daily --> held to monitor HR response to condition (8) B12 deficiency: Continue supplement 2000 mcg p.o. daily FENa: carb consistent Code Status: Full DVT PPX: heparin on hold, scds in place PT/OT: ordered Case Management: pending Dispo: med/tele Elsa Arce Do PGY 2, FCM (2) Renal insufficiency: (3) Diabetes mellitus: (4) Hypertension: (5) B12 deficiency: (6) Diabetic infection of right foot: (7) DEENA (acute kidney injury): (8) Sepsis: (9) Acute hyponatremia: Admission and Anticipated Discharge Date Admission Date: January 04, 2022 Supervising Physician Co-Signing Physician Notes I personally examined the patient and verified all ocasio points of history and e xam, discussed case, and agree with decision making with Dr Arce feeling ok. discussed rehab. no significant pain. no cp no sob. no chills vitals noted nad heent nc at mmm breathing unlabored no accessory muscles good effort skin no rashes no pallor or icterus Diabetic foot infection/gangrene with sepsis present on admission daptomycin and Zosynpost op. still septic but does appear to be improving. continue broad abx for now. low temp likely was in error - but given delicate situation - following closely. Uncontrolled type 2 diabetesdiscussed "why to care" (progressive hyperglycemia leading to microvascular ischemia)for now inpatient management with insulinconitnue to titrate. Ongoing education. Otherwise as above. Subjective Patient seen at bedside, comfortable, depressed mood. He states his daughter dropped by yesterday prior to his amputation. Patient denies any fever, chills, pain at this time. States someone had asked for his breakfast order but it has not come by yet. Patient feels it is his fault lab had a difficult time with his blood draw this morning. He understands that amputation was the best option to resolve his infection. Review of Systems Review of Systems: Negative fever chills Negative headache dizziness Negative chest pain palpitations SOB Negative nausea vomitting diarrhea constipation Negative numbness tingling rash Physical Exam Constitutional: WD/WN, vitals as above Eyes: PERRL, conjunctivae normal, anicteric sclerae ENMT: external ear and nose normal, oropharynx normal Neck: trachea midline, no thyromegaly Respiratory: normal respiratory effort, lungs clear to auscultation Cardiovascular: Rate/Rhythm: regular rate and regular rhythm Heart Sounds: normal S1 and normal S2; no gallop, no murmur and no cardiac rub Extremities: + edema (mild +1 pitting edema on left leg) Chest (Breasts): Chest: normal inspection of chest Gastrointestinal (Abdomen): normal bowel sounds, soft, nontender, no hepatosplenomegaly Musculoskeletal: right leg BKA, wrapped in bandages Skin: no rashes, warm and dry Psychiatric: Mood: + depressed mood Results & Data Results & Data ([facility]) Vital Signs (Past 12 Hours) Vital Signs Temp Pulse Resp BP Pulse Ox 01/07/22 04:22 68 18 111/62 97 01/06/22 22:35 36.3 C L 72 18 117/63 96 01/06/22 21:11 36.5 C 81 18 125/65 99 01/06/22 20:14 36.7 C 80 16 138/66 94 01/06/22 19:05 37.0 C 83 20 142/67 H 96 Laboratory Results 01/07/22 01/07/22 01/06/22 Range/Units 07:58 07:58 21:02 WBC 20.81 H (4.8-10.8) K/uL RBC 3.09 L (4.7-6.1) M/uL Hgb 8.3 L (14.0-18.0) g/dL Hct 24.3 L (42-52) % MCV 78.6 L (80-100) fL MCH 26.9 (25-34) pg MCHC 34.2 (32-36) g/dL RDW Std Deviation 40.1 (36.4-46.3) fL RDW Coeff of Radha 14.0 (11.5-14.5) % Plt Count 327 (130-400) K/uL MPV 9.5 (7.4-10.4) fL Immature Gran % (Auto) 1.1 % Neut % (Auto) 85.9 % Lymph % (Auto) 5.9 % [place] % (Auto) 6.3 % Eos % (Auto) 0.7 % Baso % (Auto) 0.1 % Neut # (Auto) 17.88 H (1.4-6.5) K/uL Lymph # (Auto) 1.22 (1.2-3.4) K/uL [place] # (Auto) 1.32 H (0.11-0.59) K/uL Eos # (Auto) 0.14 (0-0.5) K/uL Baso # (Auto) 0.03 (0-0.2) K/uL Immature Gran # (Auto) 0.22 H (0.00-0.02) K/uL Sodium 129 L (136-145) mmol/L Potassium 4.9 D (3.5-5.1) mmol/L Chloride 103 (98-107) mmol/L Carbon Dioxide 16 L (21-32) mmol/L Anion Gap 10 (3-11) BUN 83 H (6-23) mg/dl Creatinine 2.66 H (0.6-1.4) mg/dl Est Cr Clr Drug Dosing 34.9 ml/min Est GFR ( Amer) 28.7 ml/min Est GFR (Non-Af Amer) 24.8 ml/min BUN/Creatinine Ratio 31.2 H (10-20) Glucose 172 H (70-99(Fasting)) mg/dl POC Glucose 177 H (70-99) mg/dl Calcium 7.4 L (8.5-10.1) mg/dl Blood Type Antibody Screen 01/06/22 01/06/22 01/06/22 Range/Units 18:27 17:38 14:49 WBC (4.8-10.8) K/uL RBC (4.7-6.1) M/uL Hgb (14.0-18.0) g/dL Hct (42-52) % MCV (80-100) fL MCH (25-34) pg MCHC (32-36) g/dL RDW Std Deviation (36.4-46.3) fL RDW Coeff of Radha (11.5-14.5) % Plt Count (130-400) K/uL MPV (7.4-10.4) fL Immature Gran % (Auto) % Neut % (Auto) % Lymph % (Auto) % [place] % (Auto) % Eos % (Auto) % Baso % (Auto) % Neut # (Auto) (1.4-6.5) K/uL Lymph # (Auto) (1.2-3.4) K/uL [place] # (Auto) (0.11-0.59) K/uL Eos # (Auto) (0-0.5) K/uL Baso # (Auto) (0-0.2) K/uL Immature Gran # (Auto) (0.00-0.02) K/uL Sodium (136-145) mmol/L Potassium (3.5-5.1) mmol/L Chloride (98-107) mmol/L Carbon Dioxide (21-32) mmol/L Anion Gap (3-11) BUN (6-23) mg/dl Creatinine (0.6-1.4) mg/dl Est Cr Clr Drug Dosing ml/min Est GFR ( Amer) ml/min Est GFR (Non-Af Amer) ml/min BUN/Creatinine Ratio (10-20) Glucose (70-99(Fasting)) mg/dl POC Glucose 172 H 162 H (70-99) mg/dl Calcium (8.5-10.1) mg/dl Blood Type B Positive Antibody Screen NEGATIVE Medications Administered Current Inpatient Medications Acetaminophen (Acetaminophen 325 Mg Tab) 650 mg PO Q6 TORIBIO Stop: 02/05/22 17:59 Last Admin: 01/07/22 05:40 Dose: 650 mg Documented by: Amlodipine Besylate (Amlodipine Besylate 5 Mg Tab) 5 mg PO HS TORIBIO Stop: 02/04/22 20:59 Last Admin: 01/06/22 20:19 Dose: 5 mg Documented by: Cyanocobalamin (Cyanocobalamin (B-12) 500 Mcg Tablet) 2,000 mcg PO DAILY TORIBIO Stop: 02/04/22 08:59 Last Admin: 01/07/22 08:34 Dose: 2,000 mcg Documented by: Dextrose (Dextrose 50% 50 Ml Syringe) 25 - 50 ml IV UD PRN; Protocol PRN Reason: Hypoglycemia Protocol Stop: 02/04/22 00:06 Glucagon (Glucagon For Inj 1 Mg Vial) 1 mg SQ UD PRN; Protocol PRN Reason: Hypoglycemia Protocol Stop: 02/04/22 00:06 Glucose (Glucose 10 Tabs/Tube) 4 - 8 tabs PO UD PRN; Protocol PRN Reason: Hypoglycemia Protocol Stop: 02/04/22 00:06 Glucose (Glucose 40% Gel 15 Gm Tube) 15 - 30 gm PO UD PRN; Protocol PRN Reason: Hypoglycemia Protocol Stop: 02/04/22 00:06 Heparin Sodium (Porcine) (Heparin Sod 5,000 Unit/0.5 Ml Vial) 5,000 units SQ Q12 [facility] Stop: 02/04/22 08:59 Last Admin: 01/06/22 20:20 Dose: 5,000 units Documented by: Hydromorphone HCl (Hydromorphone Inj 0.5 Mg/0.5 Ml Syr) 0.5 mg IV Q3H PRN PRN Reason: Pain (6,7,8,9,10) Stop: 01/20/22 18:04 Last Admin: 01/06/22 20:22 Dose: 0.5 mg Documented by: Daptomycin 500 mg/ Syringe 10 mls @ 5 mls/min IV Q24H [facility]; Protocol Stop: 01/12/22 08:59 Last Admin: 01/07/22 08:46 Dose: 5 mls/min Documented by: Piperacillin Sod/Tazobactam (Sod 3.375 gm/ Dextrose) 115 mls @ 28.75 mls/hr IV Q8H [facility]; Protocol Stop: 01/12/22 01:59 Last Admin: 01/07/22 10:16 Dose: 28.8 mls/hr Documented by: Sodium Chloride (Nss 1000ml) 1,000 mls @ 80 mls/hr IV .[id number] [facility] Stop: 01/08/22 15:29 Last Admin: 01/07/22 01:42 Dose: 80 mls/hr Documented by: Insulin Aspart (Insulin Aspart Per Unit) 0 units SC ACHS [facility] Stop: 02/05/22 20:59 Last Admin: 01/07/22 10:00 Dose: 2 units Documented by: Insulin Glargine (Insulin Glargine Solostar 100 Units/Ml 3 Ml Pen) 10 units SC BID [facility] Stop: 02/04/22 20:59 Last Admin: 01/07/22 10:00 Dose: 10 units Documented by: Lisinopril (Lisinopril 5 Mg Tab) 5 mg PO DAILY [facility] Stop: 02/04/22 08:59 Metoprolol Tartrate (Metoprolol Tartrate 50 Mg Tab) 50 mg PO BID [facility] Stop: 02/04/22 17:59 Last Admin: 01/07/22 08:34 Dose: 50 mg Documented by: Miscellaneous (Dulaglutide [Trulicity] - Order Awaiting Action) 1 ea N/A QS [facility] Stop: 02/04/22 07:59 Last Admin: 01/07/22 08:33 Dose: Not Given Documented by: Miscellaneous (Carbohydrates For Hypoglycemia ) 15 - 30 gm PO UD PRN PRN Reason: Hypoglycemia Protocol Stop: 02/04/22 00:06 Ondansetron HCl (Ondansetron Inj 2 Mg/Ml 2 Ml Vial) 4 mg IV Q6H PRN PRN Reason: Nausea Stop: 02/04/22 00:06 Oxycodone HCl (Oxycodone Hcl Ir 5 Mg Tab (Immediate Release)) 5 mg PO Q4H PRN PRN Reason: MODERATE Pain (4,5,6) & Pre PT Stop: 01/20/22 18:04 Last Admin: 01/07/22 05:40 Dose: 5 mg Documented by: Oxycodone HCl (Oxycodone Hcl Ir 5 Mg Tab (Immediate Release)) 10 mg PO Q4H PRN PRN Reason: SEVERE Pain (7,8,9,10) Stop: 01/20/22 18:04 Last Admin: 01/07/22 01:48 Dose: 10 mg Documented by: Polyethylene Glycol (Polyethylene (Miralax) 17 Gm Pack) 17 gm PO DAILY PRN PRN Reason: Constipation Stop: 02/04/22 10:14 Resident Activity Tracking Resident Involvement: Resident Care Provided Care Provided: Adult Hospital Medicine (1) Sepsis Sepsis acute organ dysfunction status: with acute organ dysfunction Sepsis type: sepsis due to unspecified organism Severe sepsis acute organ dysfunction type: unspecified Severe sepsis shock status: without septic shock Qualified Code(s): A41.9 - Sepsis, unspecified organism; R65.20 - Severe sepsis without septic shock
[2022-01-07 08:19] LABS: Basophils # (auto) 0.03 K/uL (0-0.2); Basophils % (auto) 0.1 %; Eosinophils # (auto) 0.14 K/uL (0-0.5); Eosinophils % (auto) 0.7 %; Hematocrit (blood only) 24.3 % (42-52); Hemoglobin 8.3 g/dL (14.0-18.0); Immature Granulocytes # (auto) 0.22 K/uL (0.00-0.02); Immature Granulocytes % (auto) 1.1 %; Lymphocytes # (auto) 1.22 K/uL (1.2-3.4); Lymphocytes % (auto) 5.9 %; Mean Corpuscular Hemoglobin 26.9 pg (25-34); Mean Corpuscular Hgb Conc 34.2 g/dL (32-36); Mean Corpuscular Volume 78.6 fL (80-100); Mean Platelet Volume 9.5 fL (7.4-10.4); Monocytes # (auto) 1.32 K/uL (0.11-0.59); Monocytes % (auto) 6.3 %; Neutrophils # (auto) 17.88 K/uL (1.4-6.5); Neutrophils % (auto) 85.9 %; Platelet Count 327 K/uL (130-400); RDW Standard Deviation 40.1 fL (36.4-46.3); Red Blood Count 3.09 M/uL (4.7-6.1); White Blood Count 20.81 K/uL (4.8-10.8)
[2022-01-07] MEDS: METOPROLOL TARTRATE 50 MG TAB PO SCH ×2 (08:34→22:10)
[2022-01-07] MEDS: CYANOCOBALAMIN (B-12) 500 MCG TABLET PO SCH (08:34)
[2022-01-07 08:46] LABS: BUN Creatinine Ratio 31.2 (10-20); Calcium 7.4 mg/dl (8.5-10.1); Creatinine Clr Calc Pharmacy 34.9 ml/min; Est GFR (African American) 28.7 ml/min; Est GFR (Non-African American) 24.8 ml/min; Potassium 4.9 mmol/L (3.5-5.1)
[2022-01-07] MEDS: DAPTOmycin 500 MG in SYRINGE 0 ML IV SCH (08:46)
[2022-01-07] MEDS: INSULIN GLARGINE SOLOSTAR 100 UNITS/ML 3 ML PEN SC SCH ×2 (10:00→21:14)
[2022-01-07] MEDS: INSULIN ASPART PER UNIT SC SCH ×4 (10:00→21:14)
--- NOTE | 2022-01-07 11:49 | Orthopedic Progress Note ---
Date of Service January 07, 2022 Assessment & Plan (1) Diabetic infection of right foot: POD1 s/p below knee amputation for gas gangrene diabetic associated foot wound. - Continue antibiotic coverage for original wound culture. Recommend 2 weeks. Consider orals when WBC/ESR/CRP normal and stable - Strict glucose control and education - NWB to RLE. 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 Sutures 2-3 weeks. - Continue current pain regimen. Consider adding gabapentin if another agent is needed - DVT chemoppx for at least 6 weeks Dispo: Continue inpatient stay for antibiotic coverage, pain control and mobilization. Dressing down/drain out by ortho after POD3. 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 Lives in [place]. Expect need inpatient rehabilitation and prosthetic fitting. Subjective Pain is tolerable with current meds. Only hurts to move. No other issues. Review of Systems All systems reviewed & are unremarkable except as noted in HPI & below. Physical Exam Improved mood today. Conversational. Visited by friend/coworker RLE: dressing is c/d/i. Drain with minimal sanguinous fluid. Suction intact. Constitutional WD/WN, vitals as above no acute distress and not intoxicated appearing Respiratory normal respiratory effort; no labored breathing Cardiovascular Extremities: normal capillary refill Results & Data Results & Data Laboratory Results Laboratory Tests 01/05/22 01/05/22 01/05/22 08:42 08:42 08:42 WBC Hct 26.6 L Neut % (Auto) 90.3 INR 1.2 H Creatinine Estimat Average Glucose Hemoglobin A1c Albumin 2.4 L Hep C Ab Signal/Cutoff 01/05/22 01/05/22 01/06/22 08:42 08:42 09:10 WBC 22.62 H Hct 25.7 L Neut % (Auto) 87.8 INR Creatinine Estimat Average Glucose 183 Hemoglobin A1c 8.0 H Albumin Hep C Ab Signal/Cutoff 1.39 H 01/07/22 01/07/22 07:58 07:58 WBC 20.81 H Hct 24.3 L Neut % (Auto) 85.9 INR Creatinine 2.66 H Estimat Average Glucose Hemoglobin A1c Albumin Hep C Ab Signal/Cutoff Microbiology 01/04/22 20:17 Aerobic Blood Culture - Preliminary Blood No growth in Aerobic bottle after 48 hours. Anaerobic Blood Culture - Final 01/04/22 19:50 Aerobic Blood Culture - Preliminary Blood No growth in Aerobic bottle after 48 hours. Anaerobic Blood Culture - Preliminary No growth in Anaerobic bottle after 48 hours. 01/04/22 19:50 Gram Stain - Final Foot,Right Wound Culture - Preliminary Group B Beta Strep Diagnostic Findings . PG Care Time/CCT Total # of Minutes Spent Total Time Spent with Patient: Total time spent is greater than 50% in coordination of care (as documented) at patient's floor/unit and/or counseling patient: Coding Level of Care Code 52907 Post Operative Follow-Up Diagnoses Diabetic infection of right foot E11.628; L08.9
--- NOTE | 2022-01-07 16:17 | Billing Data ---
Date of Service January 07, 2022 Coding Level of Care Code 72526 Subseq Hosp Care Lvl 3
--- NOTE | 2022-01-07 16:17 | Billing Data ---
Date of Service January 07, 2022 Coding Level of Care Code 48173 Subseq Hosp Care Lvl 3
[2022-01-07] MEDS: amLODIPine BESYLATE 5 MG TAB PO SCH (22:11)
[2022-01-08] MEDS: ACETAMINOPHEN 325 MG TAB PO SCH ×4 (00:02→17:31)
[2022-01-08] MEDS: PIPERACILLIN/TAZOBACTAM 3.375 GM in DEXTROSE 5% 100 ML IV SCH ×3 (02:04→17:31)
--- NOTE | 2022-01-08 07:05 | Hospitalist Progress Note ---
Date of Service January 08, 2022 Assessment & Plan (1) Gas gangrene of foot: Plan: 61yo Male PMH poorly controlled DM2, HTN, B12 deficiency here for right foot gangrene (1) Diabetic infection of right foot: Right foot diabetic infection/gas gangrene Given vancomycin IV and Zosyn IV in ED, switched to Daptomycin 6 mg/kg IV every 24 hours, and Zosyn 4.5 g IV every 8 hours Dapto dc'd 01/08 given negative MRSA nares and pansensitive skin wound culture, will continue to monitor. If well tomorrow, will switch zosyn to unasyn Ordered tylenol 650mg scheduled q6h Consulted orthopedic surgery Dr. Soto, BKA 01/06 WBC 28.33 --> 16.75 ()Decreased Temperature-resolved -noted temp below 35 degrees C 01/07 -likely 2/2 to equipment malfunction, however evaluate for hemorrhage sepsis hypothermia -HR RR wnl, BP mildly soft 113/55 -hbg 10 --> 8.4, no noted compensitory increase in HR to indicate hemorrhage however is on beta alyssia -patient WBC downtrending slowly BKA yesterday to remove infection source, ordered repeat bcx to rule out secondary infection source -patient did not void since procedure yesterday 300cc scanned in bladder, no decrease in RR to indicated hypothermia -patient transferred to med/tele for closer monitoring -patient on metoprolol --> placed on hold to monitor BP compensation -If patient has persistent decreased body temp, consider starting levoquin for double gram negative coverage. -last temp 36.5C, HR 63 without metoprolol (2) Gas gangrene of foot: See above (3) CKD: Creatinine 2.65 upon admission, with no baseline --> recheck 2.13 given no improvement on fluids, likely CKD Bicarbonate 17 on admission, recheck 21 Placed on bicarb drip, bicarb d/c'd Given IVF, currently dc'd (4) Sepsis: Sepsis secondary to diabetic foot infection, treat as above Procal 15.28 CRP 46.51 MRSA nares neg Bcx pending surface culture group B strep alberts sensitive (5) Acute hyponatremia: Sodium 125 on admission, corrected for hyperglycemia 131 Serum osmolality 309, urine osmolality 446 recheck sodium 131 (6) Diabetes mellitus: Glucose 354 on admission, poor glycemic control, poor understanding of diabetes A1c 8.0 Placed on glargine 14 units subcu --> currently 15U BID Accu-Cheks before meals and at bedtime with NovoLog coverage per scale Hold metformin and Trulicity Adjust glargine dose based on above response consult glycemic education (7) Hypertension: Hold lisinopril due to renal insufficiency Metoprolol tartrate 50 mg p.o. twice daily --> held to monitor HR response to condition (8) B12 deficiency: Continue supplement 2000 mcg p.o. daily FENa: carb consistent Code Status: Full DVT PPX: heparin PT/OT: recommend inpt rehab Case Management: pending Dispo: med/tele Elsa Arce Do PGY 2, FCM (2) Renal insufficiency: (3) Diabetes mellitus: (4) Hypertension: (5) B12 deficiency: (6) Diabetic infection of right foot: (7) DEENA (acute kidney injury): (8) Sepsis: (9) Acute hyponatremia: Admission and Anticipated Discharge Date Admission Date: January 04, 2022 Supervising Physician Co-Signing Physician Notes I personally examined the patient and verified all ocasio points of history and exam, discussed case, and agree with decision making with Dr Arce feeling ok. Pain under reasonable control. Continued education about diabetes. Family present at the bedside, answered all questions to the best my ability and to their satisfaction. vitals noted nad heent nc at mmm breathing unlabored no accessory muscles good effort skin no rashes no pallor or icterus Diabetic foot infection/gangrene with sepsis present on admissioninitially on daptomycin and Zosyn. While his only culture is a surface culture which of course would be notoriously unreliable, the fact that it was a pansensitive strep, and the fact that his MRSA nares is negative, makes it reasonable to de- escalate antibiotics. Obviously continue to follow closely and reescalate if there is any increase in white count/unfavorable change in vitals/etc.but this seems to not be likely to occur Uncontrolled type 2 diabetesdiscussed "why to care" (progressive hyperglycemia leading to microvascular ischemia) and now today discussed postprandial glucose monitoring both to learn from foods and avoid foods that spike sugar, as well as to titrate mealtime insulin dosing. He expressed good understanding of this, as did family. Continue to titrate basal bolus regimen inpatienttoday increased Lantus to 15 twice daily, tighten carb ratio to 1:6 Otherwise as above. Subjective Patient seen at bedside, calm comfortable cooperative. He states his daughter came by yesterday and they had a good talk. He states his appetite is low, but is usually low. He feels uncomfortable about his change from an independent self sufficient individual to someone who relies on others for his daily needs. Denies any discomfort from the SCDs. Otherwise he denies other complaints, understands he needs to manage his sugars to prevent returning to the hospital. Review of Systems Review of Systems: Negative fever chills Negative headache dizziness Negative chest pain palpitations SOB Negative nausea vomitting diarrhea constipation Negative numbness tingling rash Physical Exam Constitutional: WD/WN, vitals as above Eyes: PERRL, conjunctivae normal, anicteric sclerae ENMT: external ear and nose normal, oropharynx normal Neck: trachea midline, no thyromegaly Respiratory: normal respiratory effort, lungs clear to auscultation Cardiovascular: RRR, no murmur, no edema Rate/Rhythm: regular rate and regular rhythm Heart Sounds: normal S1 and normal S2; no gallop, no murmur and no cardiac rub Extremities: + edema (mild +1 pitting edema on left leg) visible pulse at clavicle. Chest (Breasts): Chest: normal inspection of chest Gastrointestinal (Abdomen): normal bowel sounds, soft, nontender, no hepatosplenomegaly Skin: no rashes, warm and dry Psychiatric: Mood: + depressed mood Results & Data Results & Data ([facility]) Vital Signs (Past 12 Hours) Vital Signs Temp Pulse Pulse Resp BP BP Pulse Ox 01/08/22 02:00 36.5 C 65 18 110/54 L 98 01/07/22 22:38 36.5 C 71 18 110/56 L 99 01/07/22 22:24 71 01/07/22 19:41 36.4 C L 71 18 114/50 L 98 Diagnostic Findings Laboratory Results WBC 16.75 K/uL (4.8-10.8) H 01/08/22 06:30 RBC 3.20 M/uL (4.7-6.1) L 01/08/22 06:30 Hgb 8.4 g/dL (14.0-18.0) L 01/08/22 06:30 Hct 24.8 % (42-52) L 01/08/22 06:30 MCV 77.5 fL (80-100) L 01/08/22 06:30 MCH 26.3 pg (25-34) 01/08/22 06:30 MCHC 33.9 g/dL (32-36) 01/08/22 06:30 RDW Std Deviation 39.9 fL (36.4-46.3) 01/08/22 06:30 RDW Coeff of Radha 14.0 % (11.5-14.5) 01/08/22 06:30 Plt Count 392 K/uL (130-400) 01/08/22 06:30 MPV 9.5 fL (7.4-10.4) 01/08/22 06:30 Immature Gran % (Auto) 1.1 % 01/07/22 07:58 Neut % (Auto) 85.9 % 01/07/22 07:58 Lymph % (Auto) 5.9 % 01/07/22 07:58 Collin % (Auto) 6.3 % 01/07/22 07:58 Eos % (Auto) 0.7 % 01/07/22 07:58 Baso % (Auto) 0.1 % 01/07/22 07:58 Neut # (Auto) 17.88 K/uL (1.4-6.5) H 01/07/22 07:58 Lymph # (Auto) 1.22 K/uL (1.2-3.4) 01/07/22 07:58 Collin # (Auto) 1.32 K/uL (0.11-0.59) H 01/07/22 07:58 Eos # (Auto) 0.14 K/uL (0-0.5) 01/07/22 07:58 Baso # (Auto) 0.03 K/uL (0-0.2) 01/07/22 07:58 Immature Gran # (Auto) 0.22 K/uL (0.00-0.02) H 01/07/22 07:58 ESR 97 mm/hr (0-20) H 01/04/22 19:50 PT 12.4 Seconds (9.0-12.0) H 01/05/22 08:42 INR 1.2 (0.9-1.1) H 01/05/22 08:42 APTT 31.6 Seconds (21.0-31.0) H 01/05/22 08:42 PTT Ratio 1.1 01/05/22 08:42 Sodium 131 mmol/L (136-145) L 01/08/22 06:22 Potassium 4.4 mmol/L (3.5-5.1) 01/08/22 06:22 Chloride 104 mmol/L (98-107) 01/08/22 06:22 Carbon Dioxide 21 mmol/L (21-32) 01/08/22 06:22 Anion Gap 6 (3-11) 01/08/22 06:22 BUN 68 mg/dl (6-23) H 01/08/22 06:22 Creatinine 2.13 mg/dl (0.6-1.4) H D 01/08/22 06:22 Est Cr Clr Drug Dosing 43.5 ml/min 01/08/22 06:22 Est GFR ( Amer) 37.6 ml/min 01/08/22 06:22 Est GFR (Non-Af Amer) 32.4 ml/min 01/08/22 06:22 BUN/Creatinine Ratio 31.9 (10-20) H 01/08/22 06:22 Glucose 221 mg/dl (70-99(Fasting)) H 01/08/22 06:22 POC Glucose 239 mg/dl (70-99) H 01/08/22 07:24 Estimat Average Glucose 183 mg/dl 01/05/22 08:42 Hemoglobin A1c 8.0 % (4.5-5.6) H 01/05/22 08:42 Osmolality 309 mOsm/kg (280-300) H 01/04/22 20:02 Lactate 1.4 mmol/L (0.4-2.0) 01/04/22 19:50 Calcium 7.4 mg/dl (8.5-10.1) L 01/08/22 06:22 Total Bilirubin 1.0 mg/dl (0.2-1.0) 01/05/22 08:42 AST 15 U/L (13-39) 01/05/22 08:42 ALT 17 U/L (7-52) 01/05/22 08:42 Alkaline Phosphatase 191 U/L (34-104) H 01/05/22 08:42 C-Reactive Protein 46.51 mg/dl (0-0.5) H 01/04/22 19:50 Total Protein 6.6 gm/dl (6.0-8.3) 01/05/22 08:42 Albumin 2.4 gm/dl (3.4-5.0) L 01/05/22 08:42 Globulin 4.2 gm/dl (2.5-4.0) H 01/05/22 08:42 Albumin/Globulin Ratio 0.6 (0.9-2) L 01/05/22 08:42 Lipase 42 U/L (11-82) 01/04/22 19:50 Procalcitonin 15.28 ng/ml (0-0.5) H 01/04/22 19:50 Urine Osmolality 446 mOsm/kg (500-800) L 01/05/22 14:40 Nasal Screen MRSA (PCR) Negative (Negative) 01/04/22 20:08 Hepatitis C Ab (EIA) REACTIVE (NON-REACTIVE) A 01/05/22 08:42 Hep C Ab Signal/Cutoff 1.39 (<1.00) H 01/05/22 08:42 SARS-CoV-2, RNA, NAAT NEGATIVE (NEGATIVE) 01/04/22 20:48 Blood Type B Positive 01/06/22 14:49 Antibody Screen NEGATIVE 01/06/22 14:49 Impressions Foot X-Ray 01/04/22 19:46 XR foot RT min 3V routine CLINICAL HISTORY: lateral wound. COMPARISON STUDY: No previous studies for comparison. TECHNIQUE: 3 right foot views FINDINGS: Bones: There is no definite radiographic evidence for osteomyelitis. There is no evidence for an acute fracture or dislocation. There is no lytic or blastic lesion. Joints: There is narrowing of the fourth and fifth MTP joints The bones are in anatomic alignment. Soft tissues: There is extensive soft tissue swelling along the dorsum and lateral aspect of the foot. Air is seen tracking along the deep fascial plane. The findings are most characteristic of gastroenteritis. There is no radiopaque foreign body. IMPRESSION: 1. 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 2. No definite radiographic evidence for osteomyelitis. ACT 112: Negative or not required by law. Electronically signed by: Maxime Pelayo M.D. 01/04/2022 8:22 PM Duplex Scan Lower Extremity Artery 01/04/22 22:41 RIGHT LOWER EXTREMITY ARTERIAL DOPPLER ULTRASOUND CLINICAL HISTORY: diabetic foot ulcer COMPARISON STUDY: No previous studies for comparison. TECHNIQUE: Color and duplex Doppler sonography of the arterial system of the right lower extremity was performed. FINDINGS: Prominent right groin nodes have benign imaging characteristics. There is triphasic flow within the right common femoral artery as well as the right profunda. There is also triphasic flow within the proximal to mid superficial femoral artery. Mild atherosclerotic plaque is noted. No elevated velocities are identified. There is monophasic flow within the right popliteal, posterior tibial, anterior tibial, peroneal and dorsalis pedis vessels. Waveforms within the right dorsalis pedis are markedly dampened. Right lower extremity subcutaneous edema is incidentally noted. IMPRESSION: 1. Monophasic flow within the right calf vessels, as above. 2. No evidence for a hemodynamically significant stenosis within the right lower extremity. Mild atherosclerotic plaque. 3. No evidence for inflow disease. ACT 112: Negative or not required by law. Electronically signed by: Quentin Falcon M.D. 01/05/2022 7:24 AM Resident Activity Tracking Resident Involvement: Resident Care Provided Care Provided: Adult Hospital Medicine (1) Sepsis Sepsis acute organ dysfunction status: with acute organ dysfunction Sepsis type: sepsis due to unspecified organism Severe sepsis acute organ dysfunction type: unspecified Severe sepsis shock status: without septic shock Qualified Code(s): A41.9 - Sepsis, unspecified organism; R65.20 - Severe sepsis without septic shock
[2022-01-08 07:06] LABS: Hematocrit (blood only) 24.8 % (42-52); Hemoglobin 8.4 g/dL (14.0-18.0); Mean Corpuscular Hemoglobin 26.3 pg (25-34); Mean Corpuscular Hgb Conc 33.9 g/dL (32-36); Mean Corpuscular Volume 77.5 fL (80-100); Mean Platelet Volume 9.5 fL (7.4-10.4); Platelet Count 392 K/uL (130-400); RDW Standard Deviation 39.9 fL (36.4-46.3); White Blood Count 16.75 K/uL (4.8-10.8)
[2022-01-08 07:32] LABS: BUN Creatinine Ratio 31.9 (10-20); Calcium 7.4 mg/dl (8.5-10.1); Creatinine Clr Calc Pharmacy 43.5 ml/min; Est GFR (African American) 37.6 ml/min; Est GFR (Non-African American) 32.4 ml/min; Potassium 4.4 mmol/L (3.5-5.1)
[2022-01-08] MEDS: INSULIN GLARGINE SOLOSTAR 100 UNITS/ML 3 ML PEN SC SCH ×3 (08:32→20:51)
[2022-01-08] MEDS: DAPTOmycin 500 MG in SYRINGE 0 ML IV SCH (08:32)
[2022-01-08] MEDS: INSULIN ASPART PER UNIT SC SCH ×4 (08:32→20:52)
[2022-01-08] MEDS: METOPROLOL TARTRATE 50 MG TAB PO SCH ×3 (09:42→21:02)
[2022-01-08] MEDS: CYANOCOBALAMIN (B-12) 500 MCG TABLET PO SCH (09:42)
[2022-01-08] MEDS ORDERED: CALCIUM CARBONATE 500 MG CHEWABLE TAB PO ONE (12:52)
[2022-01-08] MEDS ORDERED: ONDANSETRON INJ 2 MG/ML 2 ML VIAL IV ONE (12:52)
--- NOTE | 2022-01-08 14:38 | Billing Data ---
Date of Service January 08, 2022 Coding Level of Care Code 51414 Subseq Hosp Care Lvl 3
[2022-01-08] MEDS: amLODIPine BESYLATE 5 MG TAB PO SCH (20:51)
[2022-01-09] MEDS: ACETAMINOPHEN 325 MG TAB PO SCH ×4 (00:39→17:42)
[2022-01-09] MEDS: PIPERACILLIN/TAZOBACTAM 3.375 GM in DEXTROSE 5% 100 ML IV SCH ×3 (00:42→17:42)
--- NOTE | 2022-01-09 07:49 | Orthopedic Progress Note ---
Date of Service January 09, 2022 Assessment & Plan (1) Diabetic infection of right foot: POD3 s/p below knee amputation for gas gangrene diabetic associated foot wound. No change to POC - Continue antibiotic coverage for original wound culture. Recommend 2 weeks. - Strict glucose control and education - NWB to RLE. Cable Former fitting when tolerable. Sutures 2-3 weeks. - Continue current pain regimen. Consider adding gabapentin if another agent is needed - DVT chemoppx for at least 6 weeks Dispo: assess rehab needs. Recommend continuing parenteral abx until WBC normalized Subjective Reports pain is tolerable. Able to sleep. Complains of low appetite but this has been a chronic problem. Review of Systems All systems reviewed & are unremarkable except as noted in HPI & below. Physical Exam Gen: cooperative, comfortable. RLE: dressing taken down. Wound is well approx without erythema or drainage. Drain output 0 for >24 hrs. Drain was removed - site clean and dry. Knee ROM passive to 0. Results & Data Results & Data Laboratory Results Laboratory Tests 01/08/22 01/08/22 06:22 06:30 WBC 16.75 H Hct 24.8 L Creatinine 2.13 H D Microbiology 01/07/22 16:50 Aerobic Blood Culture - Preliminary Blood No growth in Aerobic bottle after 24 hours. Anaerobic Blood Culture - Preliminary No growth in Anaerobic bottle after 24 hours. 01/07/22 16:41 Aerobic Blood Culture - Preliminary Blood No growth in Aerobic bottle after 24 hours. Anaerobic Blood Culture - Preliminary No growth in Anaerobic bottle after 24 hours. 01/04/22 19:50 Gram Stain - Final Foot,Right Wound Culture - Final Group B Beta Strep . Diagnostic Findings . PG Care Time/CCT Total # of Minutes Spent Total Time Spent with Patient: Total time spent is greater than 50% in coordination of care (as documented) at patient's floor/unit and/or counseling patient: Coding Level of Care Code 65936 Post Operative Follow-Up Diagnoses Diabetic infection of right foot E11.628; L08.9
[2022-01-09 08:15] LABS: Hematocrit (blood only) 26.2 % (42-52); Hemoglobin 8.7 g/dL (14.0-18.0); Mean Corpuscular Hemoglobin 26.2 pg (25-34); Mean Corpuscular Hgb Conc 33.2 g/dL (32-36); Mean Corpuscular Volume 78.9 fL (80-100); Mean Platelet Volume 9.5 fL (7.4-10.4); Platelet Count 427 K/uL (130-400); RDW Coefficient of Variation 14.2 % (11.5-14.5); RDW Standard Deviation 41.4 fL (36.4-46.3); Red Blood Count 3.32 M/uL (4.7-6.1); White Blood Count 12.92 K/uL (4.8-10.8)
[2022-01-09 08:41] LABS: BUN Creatinine Ratio 25.6 (10-20); Calcium 7.6 mg/dl (8.5-10.1); Creatinine Clr Calc Pharmacy 47.5 ml/min; Est GFR (African American) 41.8 ml/min; Est GFR (Non-African American) 36.1 ml/min; Potassium 4.6 mmol/L (3.5-5.1)
--- NOTE | 2022-01-09 09:49 | Hospitalist Progress Note ---
Date of Service January 09, 2022 Assessment & Plan (1) Gas gangrene of foot: Plan: 61yo Male PMH poorly controlled DM2, HTN, B12 deficiency here for right foot gangrene (1) Diabetic infection of right foot: Right foot diabetic infection/gas gangrene Given vancomycin IV and Zosyn IV in ED, switched to Daptomycin 6 mg/kg IV every 24 hours, and Zosyn 4.5 g IV every 8 hours Dapto dc'd 01/08 given negative MRSA nares and pansensitive skin wound culture, will continue to monitor. if WBC continues to downtrend, will switch to Augmentin 875mg BID for 14 days total (dc after 01/17) Ordered tylenol 650mg scheduled q6h Consulted orthopedic surgery Dr. Soto, BKA 01/06 per ortho, continue DVT prophylaxis 6 weeks, currently on heparin WBC 28.33 --> 12.92 ()Decreased Temperature-resolved -noted temp below 35 degrees C 01/07 - improved. no sign of new infection (2) Gas gangrene of foot: See above (3) CKD with acidosis: Creatinine 2.65 upon admission, with no baseline --> recheck 1.95 given no improvement on fluids, likely CKD Bicarbonate 17 on admission - received bicarb drip. recheck 21 (4) Sepsis: Sepsis secondary to diabetic foot infection, treat as above Bcx no growth 48hr, repeat bcx no growth 24hr surface culture group B strep alberts sensitive (5) Acute hyponatremia: Sodium 125 on admission, corrected for hyperglycemia 131 Serum osmolality 309, urine osmolality 446 recheck sodium 135 (6) Diabetes mellitus: Glucose 354 on admission, poor glycemic control, poor understanding of diabetes A1c 8.0 Placed on glargine 14 units subcu --> currently 15U BID Accu-Cheks before meals and at bedtime with NovoLog coverage per scale Hold metformin and Trulicity Adjust glargine dose based on above response consult glycemic education (7) Hypertension: Hold lisinopril due to renal insufficiency Metoprolol tartrate 50 mg p.o. twice daily --> held to monitor HR response to condition (8) B12 deficiency: Continue supplement 2000 mcg p.o. daily FENa: carb consistent Code Status: Full DVT PPX: heparin on hold 01/07, resumed 01/09 PT/OT: recommend inpt rehab Case Management: referral faxed to [facility] Dispo: med/tele Elsa Arce Do PGY 2, FCM (2) Renal insufficiency: (3) Diabetes mellitus: (4) Hypertension: (5) B12 deficiency: (6) Diabetic infection of right foot: (7) DEENA (acute kidney injury): (8) Sepsis: (9) Acute hyponatremia: Admission and Anticipated Discharge Date Admission Date: January 04, 2022 Supervising Physician Co-Signing Physician Notes Resident Physician Supervision Note: I independently interviewed and examined the patient and verified the ocasio history and physical, reviewed labs and image studies and agree with resident Dr. Arce findings and care plan. Subjective Patient seen at bedside, calm comfortable cooperative. He states PT came by this morning, did well in PT. Patient states he is coming to terms with his BKA out of necessity. Denies any pain. He states surgery has come by, removed drain from his surgical site. No acute concerns at this time. Review of Systems Review of Systems: Negative fever chills Negative headache dizziness Negative chest pain palpitations SOB Negative nausea vomitting diarrhea constipation Negative numbness tingling rash Physical Exam Constitutional: WD/WN, vitals as above Eyes: PERRL, conjunctivae normal, anicteric sclerae ENMT: external ear and nose normal, oropharynx normal Neck: trachea midline, no thyromegaly Respiratory: normal respiratory effort, lungs clear to auscultation Cardiovascular: Rate/Rhythm: regular rate and regular rhythm Heart Sounds: normal S1 and normal S2; no gallop, no murmur and no cardiac rub Extremities: + edema (mild +1 pitting edema on left leg) Chest (Breasts): Chest: normal inspection of chest Gastrointestinal (Abdomen): normal bowel sounds, soft, nontender, no hepatosplenomegaly Musculoskeletal: R BKA with bandage Skin: no rashes, warm and dry Psychiatric: Mood: + depressed mood Results & Data Results & Data ([facility]) Vital Signs (Past 12 Hours) Vital Signs Temp Pulse Pulse Resp BP Pulse Ox 01/09/22 07:47 36.5 C 68 16 125/53 L 99 01/09/22 02:54 36.5 C 65 18 110/62 100 01/08/22 22:51 36.6 C 63 18 110/61 99 01/08/22 22:16 66 Laboratory Results 06/01/09/22 01/09/22 Range/Units 11:33 07:56 07:56 WBC 12.92 H (4.8-10.8) K/uL RBC 3.32 L (4.7-6.1) M/uL Hgb 8.7 L (14.0-18.0) g/dL Hct 26.2 L (42-52) % MCV 78.9 L (80-100) fL MCH 26.2 (25-34) pg MCHC 33.2 (32-36) g/dL RDW Std Deviation 41.4 (36.4-46.3) fL RDW Coeff of Radha 14.2 (11.5-14.5) % Plt Count 427 H (130-400) K/uL MPV 9.5 (7.4-10.4) fL Sodium 135 L (136-145) mmol/L Potassium 4.6 (3.5-5.1) mmol/L Chloride 108 H (98-107) mmol/L Carbon Dioxide 21 (21-32) mmol/L Anion Gap 6 (3-11) BUN 50 H (6-23) mg/dl Creatinine 1.95 H (0.6-1.4) mg/dl Est Cr Clr Drug Dosing 47.5 ml/min Est GFR ( Amer) 41.8 ml/min Est GFR (Non-Af Amer) 36.1 ml/min BUN/Creatinine Ratio 25.6 H (10-20) Glucose 113 H (70-99(Fasting)) mg/dl POC Glucose 172 H (70-99) mg/dl Calcium 7.6 L (8.5-10.1) mg/dl 01/09/22 01/08/22 01/08/22 Range/Units 07:32 20:21 16:40 WBC (4.8-10.8) K/uL RBC (4.7-6.1) M/uL Hgb (14.0-18.0) g/dL Hct (42-52) % MCV (80-100) fL MCH (25-34) pg MCHC (32-36) g/dL RDW Std Deviation (36.4-46.3) fL RDW Coeff of Radha (11.5-14.5) % Plt Count (130-400) K/uL MPV (7.4-10.4) fL Sodium (136-145) mmol/L Potassium (3.5-5.1) mmol/L Chloride (98-107) mmol/L Carbon Dioxide (21-32) mmol/L Anion Gap (3-11) BUN (6-23) mg/dl Creatinine (0.6-1.4) mg/dl Est Cr Clr Drug Dosing ml/min Est GFR ( Amer) ml/min Est GFR (Non-Af Amer) ml/min BUN/Creatinine Ratio (10-20) Glucose (70-99(Fasting)) mg/dl POC Glucose 120 H 192 H 199 H (70-99) mg/dl Calcium (8.5-10.1) mg/dl Medications Administered Current Inpatient Medications Acetaminophen (Acetaminophen 325 Mg Tab) 650 mg PO Q6 TORIBIO Stop: 02/05/22 17:59 Last Admin: 01/09/22 12:37 Dose: 650 mg Documented by: Amlodipine Besylate (Amlodipine Besylate 5 Mg Tab) 5 mg PO HS TORIBIO Stop: 02/04/22 20:59 Last Admin: 01/08/22 20:51 Dose: 5 mg Documented by: Cyanocobalamin (Cyanocobalamin (B-12) 500 Mcg Tablet) 2,000 mcg PO DAILY TORIBIO Stop: 02/04/22 08:59 Last Admin: 01/09/22 09:59 Dose: 2,000 mcg Documented by: Dextrose (Dextrose 50% 50 Ml Syringe) 25 - 50 ml IV UD PRN; Protocol PRN Reason: Hypoglycemia Protocol Stop: 02/04/22 00:06 Glucagon (Glucagon For Inj 1 Mg Vial) 1 mg SQ UD PRN; Protocol PRN Reason: Hypoglycemia Protocol Stop: 02/04/22 00:06 Glucose (Glucose 10 Tabs/Tube) 4 - 8 tabs PO UD PRN; Protocol PRN Reason: Hypoglycemia Protocol Stop: 02/04/22 00:06 Glucose (Glucose 40% Gel 15 Gm Tube) 15 - 30 gm PO UD PRN; Protocol PRN Reason: Hypoglycemia Protocol Stop: 02/04/22 00:06 Heparin Sodium (Porcine) (Heparin Sod 5,000 Unit/0.5 Ml Vial) 5,000 units SQ Q12 TORIBIO Stop: 02/04/22 08:59 Last Admin: 01/06/22 20:20 Dose: 5,000 units Documented by: Hydromorphone HCl (Hydromorphone Inj 0.5 Mg/0.5 Ml Syr) 0.5 mg IV Q3H PRN PRN Reason: Pain (6,7,8,9,10) Stop: 01/20/22 18:04 Last Admin: 01/06/22 20:22 Dose: 0.5 mg Documented by: Piperacillin Sod/Tazobactam (Sod 3.375 gm/ Dextrose) 115 mls @ 28.75 mls/hr IV Q8H [facility]; Protocol Stop: 01/12/22 01:59 Last Admin: 01/09/22 09:57 Dose: 28.8 mls/hr Documented by: Insulin Aspart (Insulin Aspart Per Unit) 0 units SC ACHS [facility] Stop: 02/05/22 20:59 Last Admin: 01/09/22 12:18 Dose: 10 units Documented by: Insulin Glargine (Insulin Glargine Solostar 100 Units/Ml 3 Ml Pen) 15 units SC BID [facility] Stop: 02/07/22 08:59 Last Admin: 01/09/22 09:55 Dose: 15 units Documented by: Lisinopril (Lisinopril 5 Mg Tab) 5 mg PO DAILY [facility] Stop: 02/04/22 08:59 Metoprolol Tartrate (Metoprolol Tartrate 50 Mg Tab) 50 mg PO BID [facility] Stop: 02/04/22 17:59 Last Admin: 01/09/22 09:57 Dose: 50 mg Documented by: Miscellaneous (Dulaglutide [Trulicity] - Order Awaiting Action) 1 ea N/A QS [facility] Stop: 02/04/22 07:59 Last Admin: 01/07/22 17:47 Dose: Not Given Documented by: Miscellaneous (Carbohydrates For Hypoglycemia ) 15 - 30 gm PO UD PRN PRN Reason: Hypoglycemia Protocol Stop: 02/04/22 00:06 Ondansetron HCl (Ondansetron Inj 2 Mg/Ml 2 Ml Vial) 4 mg IV Q6H PRN PRN Reason: Nausea Stop: 02/04/22 00:06 Oxycodone HCl (Oxycodone Hcl Ir 5 Mg Tab (Immediate Release)) 5 mg PO Q4H PRN PRN Reason: MODERATE Pain (4,5,6) & Pre PT Stop: 01/20/22 18:04 Last Admin: 01/07/22 05:40 Dose: 5 mg Documented by: Oxycodone HCl (Oxycodone Hcl Ir 5 Mg Tab (Immediate Release)) 10 mg PO Q4H PRN PRN Reason: SEVERE Pain (7,8,9,10) Stop: 01/20/22 18:04 Last Admin: 01/07/22 01:48 Dose: 10 mg Documented by: Polyethylene Glycol (Polyethylene (Miralax) 17 Gm Pack) 17 gm PO DAILY TORIBIO Stop: 02/08/22 09:59 Last Admin: 01/09/22 12:37 Dose: 17 gm Documented by: Resident Activity Tracking Resident Involvement: Resident Care Provided Care Provided: Adult Hospital Medicine (1) Sepsis Sepsis acute organ dysfunction status: with acute organ dysfunction Sepsis type: sepsis due to unspecified organism Severe sepsis acute organ dysfunction type: unspecified Severe sepsis shock status: without septic shock Qualified Code(s): A41.9 - Sepsis, unspecified organism; R65.20 - Severe sepsis without septic shock
[2022-01-09] MEDS: INSULIN GLARGINE SOLOSTAR 100 UNITS/ML 3 ML PEN SC SCH ×2 (09:55→22:05)
[2022-01-09] MEDS: INSULIN ASPART PER UNIT SC SCH ×4 (09:55→22:06)
[2022-01-09] MEDS: METOPROLOL TARTRATE 50 MG TAB PO SCH (09:57)
[2022-01-09] MEDS: CYANOCOBALAMIN (B-12) 500 MCG TABLET PO SCH (09:59)
[2022-01-09] MEDS: POLYETHYLENE (MIRALAX) 17 GM PACK PO SCH (12:37)
[2022-01-09] MEDS: amLODIPine BESYLATE 5 MG TAB PO SCH (22:06)
[2022-01-10] MEDS: HEPARIN SOD 5,000 UNIT/0.5 ML VIAL SQ SCH ×3 (01:10→20:19)
[2022-01-10] MEDS: ACETAMINOPHEN 325 MG TAB PO SCH ×4 (01:10→18:13)
[2022-01-10] MEDS: PIPERACILLIN/TAZOBACTAM 3.375 GM in DEXTROSE 5% 100 ML IV SCH ×3 (01:10→18:14)
--- NOTE | 2022-01-10 07:10 | Hospitalist Progress Note ---
Date of Service January 10, 2022 Assessment & Plan (1) Gas gangrene of foot: Plan: 61yo Male PMH poorly controlled DM2, HTN, B12 deficiency here for right foot gangrene (1) Diabetic infection of right foot: Right foot diabetic infection/gas gangrene Given vancomycin IV and Zosyn IV in ED, switched to Daptomycin 6 mg/kg IV every 24 hours, and Zosyn 4.5 g IV every 8 hours Dapto dc'd 01/08 given negative MRSA nares and pansensitive skin wound culture, will continue to monitor. 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 Sutures 2-3 weeks. PRN dilaudid oxycodone, Consider adding gabapentin if another agent is needed WBC 28.33 --> 10.06 ESR 97--> 130 CRP 46.51-->8.64 ()Decreased Temperature-resolved -noted temp below 35 degrees C 01/07 - improved. no sign of new infection (2) Gas gangrene of foot: See above (3) CKD with acidosis: Creatinine 2.65 upon admission, with no baseline --> recheck 1.69 given no improvement on fluids, likely CKD Bicarbonate 17 on admission - received bicarb drip. recheck 21 (4) Sepsis: Sepsis secondary to diabetic foot infection, treat as above Bcx no growth 48hr, repeat bcx no growth 48hr surface culture group B strep alberts sensitive (5) Acute hyponatremia: Sodium 125 on admission, corrected for hyperglycemia 131 Serum osmolality 309, urine osmolality 446 recheck sodium 135 (6) Diabetes mellitus: Glucose 354 on admission, poor glycemic control, poor understanding of diabetes A1c 8.0 Placed on glargine 14 units subcu --> currently 15U BID Accu-Cheks before meals and at bedtime with NovoLog coverage per scale Hold metformin and Trulicity Adjust glargine dose based on above response consult glycemic education (7) Hypertension: Hold lisinopril due to renal insufficiency continue amlodipine Metoprolol tartrate 50 mg p.o. twice daily --> held to monitor HR response to condition, BP wnl (8) B12 deficiency: Continue supplement 2000 mcg p.o. daily FENa: carb consistent Code Status: Full DVT PPX: heparin on hold 01/07, resumed 01/09 PT/OT: recommend inpt rehab Case Management: referral faxed to [facility] Dispo: med/tele Elsa Arce Do PGY 2, FCM (2) Renal insufficiency: (3) Diabetes mellitus: (4) Hypertension: (5) B12 deficiency: (6) Diabetic infection of right foot: (7) DEENA (acute kidney injury): (8) Sepsis: (9) Acute hyponatremia: Admission and Anticipated Discharge Date Admission Date: January 04, 2022 Supervising Physician Co-Signing Physician Notes Resident Physician Supervision Note: I independently interviewed and examined the patient and verified the ocasio history and physical, reviewed labs and image studies and agree with resident Dr. Arce findings and care plan. Subjective Patient seen at bedside, calm comfortable cooperative. He states breakfast was ok, not much of an appetite, no BM yet. Patient understands working with physical therapy will help his maneuverability. He understands we are currently awaiting placement. No acute concerns as of today. Review of Systems Review of Systems: Negative fever chills Negative headache dizziness Negative chest pain palpitations SOB Negative nausea vomitting diarrhea constipation Negative numbness tingling rash Physical Exam Constitutional: WD/WN, vitals as above Eyes: PERRL, conjunctivae normal, anicteric sclerae ENMT: external ear and nose normal, oropharynx normal Neck: trachea midline, no thyromegaly Respiratory: normal respiratory effort, lungs clear to auscultation Cardiovascular: Rate/Rhythm: regular rate and regular rhythm Heart Sounds: normal S1 and normal S2; no gallop, no murmur and no cardiac rub Extremities: + edema (mild +1 pitting edema on left leg) Chest (Breasts): Chest: normal inspection of chest Gastrointestinal (Abdomen): normal bowel sounds, soft, nontender, no hepatos plenomegaly Musculoskeletal: R BKA with bandage Skin: no rashes, warm and dry Psychiatric: Mood: + depressed mood Results & Data Results & Data ([facility]) Vital Signs (Past 12 Hours) Vital Signs Temp Pulse Pulse Resp BP Pulse Ox 01/10/22 04:34 36.5 C 68 18 131/66 100 01/10/22 00:00 36.4 C L 69 18 125/68 100 01/09/22 22:28 71 01/09/22 19:59 36.5 C 77 18 132/69 98 Laboratory Results 01/10/22 01/10/22 01/10/22 Range/Units 11:38 07:42 06:46 WBC (4.8-10.8) K/uL RBC (4.7-6.1) M/uL Hgb (14.0-18.0) g/dL Hct (42-52) % MCV (80-100) fL MCH (25-34) pg MCHC (32-36) g/dL RDW Std Deviation (36.4-46.3) fL RDW Coeff of Radha (11.5-14.5) % Plt Count (130-400) K/uL MPV (7.4-10.4) fL ESR (0-20) mm/hr Sodium (136-145) mmol/L Potassium (3.5-5.1) mmol/L Chloride (98-107) mmol/L Carbon Dioxide (21-32) mmol/L Anion Gap (3-11) BUN (6-23) mg/dl Creatinine (0.6-1.4) mg/dl Est Cr Clr Drug Dosing ml/min Est GFR ( Amer) ml/min Est GFR (Non-Af Amer) ml/min BUN/Creatinine Ratio (10-20) Glucose (70-99(Fasting)) mg/dl POC Glucose 193 H 123 H (70-99) mg/dl Calcium (8.5-10.1) mg/dl C-Reactive Protein 8.64 H (0-0.5) mg/dl 01/10/22 01/10/22 01/10/22 Range/Units 06:46 06:46 06:46 WBC 10.06 (4.8-10.8) K/uL RBC 3.31 L (4.7-6.1) M/uL Hgb 8.8 L (14.0-18.0) g/dL Hct 26.7 L (42-52) % MCV 80.7 (80-100) fL MCH 26.6 (25-34) pg MCHC 33.0 (32-36) g/dL RDW Std Deviation 42.3 (36.4-46.3) fL RDW Coeff of Radha 14.2 (11.5-14.5) % Plt Count 404 H (130-400) K/uL MPV 9.4 (7.4-10.4) fL ESR 130 H (0-20) mm/hr Sodium 135 L (136-145) mmol/L Potassium 4.6 (3.5-5.1) mmol/L Chloride 109 H (98-107) mmol/L Carbon Dioxide 22 (21-32) mmol/L Anion Gap 4 (3-11) BUN 38 H (6-23) mg/dl Creatinine 1.69 H (0.6-1.4) mg/dl Est Cr Clr Drug Dosing 54.9 ml/min Est GFR ( Amer) 49.7 ml/min Est GFR (Non-Af Amer) 42.9 ml/min BUN/Creatinine Ratio 22.5 H (10-20) Glucose 108 H (70-99(Fasting)) mg/dl POC Glucose (70-99) mg/dl Calcium 7.6 L (8.5-10.1) mg/dl C-Reactive Protein (0-0.5) mg/dl 01/09/22 01/09/22 Range/Units 20:32 16:10 WBC (4.8-10.8) K/uL RBC (4.7-6.1) M/uL Hgb (14.0-18.0) g/dL Hct (42-52) % MCV (80-100) fL MCH (25-34) pg MCHC (32-36) g/dL RDW Std Deviation (36.4-46.3) fL RDW Coeff of Radha (11.5-14.5) % Plt Count (130-400) K/uL MPV (7.4-10.4) fL ESR (0-20) mm/hr Sodium (136-145) mmol/L Potassium (3.5-5.1) mmol/L Chloride (98-107) mmol/L Carbon Dioxide (21-32) mmol/L Anion Gap (3-11) BUN (6-23) mg/dl Creatinine (0.6-1.4) mg/dl Est Cr Clr Drug Dosing ml/min Est GFR ( Amer) ml/min Est GFR (Non-Af Amer) ml/min BUN/Creatinine Ratio (10-20) Glucose (70-99(Fasting)) mg/dl POC Glucose 158 H 84 (70-99) mg/dl Calcium (8.5-10.1) mg/dl C-Reactive Protein (0-0.5) mg/dl Medications Administered Current Inpatient Medications Acetaminophen (Acetaminophen 325 Mg Tab) 650 mg PO Q6 TORIBIO Stop: 02/05/22 17:59 Last Admin: 01/10/22 12:12 Dose: 650 mg Documented by: Amlodipine Besylate (Amlodipine Besylate 5 Mg Tab) 5 mg PO HS TORIBIO Stop: 02/04/22 20:59 Last Admin: 01/09/22 22:06 Dose: 5 mg Documented by: Cyanocobalamin (Cyanocobalamin (B-12) 500 Mcg Tablet) 2,000 mcg PO DAILY TORIBOI Stop: 02/04/22 08:59 Last Admin: 01/10/22 08:34 Dose: 2,000 mcg Documented by: Dextrose (Dextrose 50% 50 Ml Syringe) 25 - 50 ml IV UD PRN; Protocol PRN Reason: Hypoglycemia Protocol Stop: 02/04/22 00:06 Glucagon (Glucagon For Inj 1 Mg Vial) 1 mg SQ UD PRN; Protocol PRN Reason: Hypoglycemia Protocol Stop: 02/04/22 00:06 Glucose (Glucose 10 Tabs/Tube) 4 - 8 tabs PO UD PRN; Protocol PRN Reason: Hypoglycemia Protocol Stop: 02/04/22 00:06 Glucose (Glucose 40% Gel 15 Gm Tube) 15 - 30 gm PO UD PRN; Protocol PRN Reason: Hypoglycemia Protocol Stop: 02/04/22 00:06 Heparin Sodium (Porcine) (Heparin Sod 5,000 Unit/0.5 Ml Vial) 5,000 units SQ Q12 TORIBIO Stop: 02/04/22 08:59 Last Admin: 01/10/22 08:35 Dose: 5,000 units Documented by: Hydromorphone HCl (Hydromorphone Inj 0.5 Mg/0.5 Ml Syr) 0.5 mg IV Q3H PRN PRN Reason: Pain (6,7,8,9,10) Stop: 01/20/22 18:04 Last Admin: 01/06/22 20:22 Dose: 0.5 mg Documented by: Piperacillin Sod/Tazobactam (Sod 3.375 gm/ Dextrose) 115 mls @ 28.75 mls/hr IV Q8H [facility]; Protocol Stop: 01/12/22 01:59 Last Admin: 01/10/22 11:27 Dose: 28.8 mls/hr Documented by: Insulin Aspart (Insulin Aspart Per Unit) 0 units SC ACHS [facility] Stop: 02/05/22 20:59 Last Admin: 01/10/22 12:10 Dose: 10 units Documented by: Insulin Glargine (Insulin Glargine Solostar 100 Units/Ml 3 Ml Pen) 15 units SC BID [facility] Stop: 02/07/22 08:59 Last Admin: 01/10/22 08:35 Dose: 15 units Documented by: Lisinopril (Lisinopril 5 Mg Tab) 5 mg PO DAILY [facility] Stop: 02/04/22 08:59 Miscellaneous (Dulaglutide [Trulicity] - Order Awaiting Action) 1 ea N/A QS [facility] Stop: 02/04/22 07:59 Last Admin: 01/07/22 17:47 Dose: Not Given Documented by: Miscellaneous (Carbohydrates For Hypoglycemia ) 15 - 30 gm PO UD PRN PRN Reason: Hypoglycemia Protocol Stop: 02/04/22 00:06 Ondansetron HCl (Ondansetron Inj 2 Mg/Ml 2 Ml Vial) 4 mg IV Q6H PRN PRN Reason: Nausea Stop: 02/04/22 00:06 Oxycodone HCl (Oxycodone Hcl Ir 5 Mg Tab (Immediate Release)) 5 mg PO Q4H PRN PRN Reason: MODERATE Pain (4,5,6) & Pre PT Stop: 01/20/22 18:04 Last Admin: 01/07/22 05:40 Dose: 5 mg Documented by: Oxycodone HCl (Oxycodone Hcl Ir 5 Mg Tab (Immediate Release)) 10 mg PO Q4H PRN PRN Reason: SEVERE Pain (7,8,9,10) Stop: 01/20/22 18:04 Last Admin: 01/07/22 01:48 Dose: 10 mg Documented by: Polyethylene Glycol (Polyethylene (Miralax) 17 Gm Pack) 34 gm PO DAILY [facility] Stop: 02/10/22 08:59 Resident Activity Tracking Resident Involvement: Resident Care Provided Care Provided: Adult [facility] Medicine (1) Sepsis Sepsis acute organ dysfunction status: with acute organ dysfunction Sepsis type: sepsis due to unspecified organism Severe sepsis acute organ dysfunction type: unspecified Severe sepsis shock status: without septic shock Qualified Code(s): A41.9 - Sepsis, unspecified organism; R65.20 - Severe sepsis without septic shock
[2022-01-10 07:43] LABS: Hematocrit (blood only) 26.7 % (42-52); Hemoglobin 8.8 g/dL (14.0-18.0); Mean Corpuscular Hemoglobin 26.6 pg (25-34); Mean Corpuscular Volume 80.7 fL (80-100); Mean Platelet Volume 9.4 fL (7.4-10.4); Platelet Count 404 K/uL (130-400); RDW Coefficient of Variation 14.2 % (11.5-14.5); RDW Standard Deviation 42.3 fL (36.4-46.3); Red Blood Count 3.31 M/uL (4.7-6.1); White Blood Count 10.06 K/uL (4.8-10.8)
[2022-01-10 08:06] LABS: BUN Creatinine Ratio 22.5 (10-20); Calcium 7.6 mg/dl (8.5-10.1); Creatinine Clr Calc Pharmacy 54.9 ml/min; Est GFR (African American) 49.7 ml/min; Est GFR (Non-African American) 42.9 ml/min; Potassium 4.6 mmol/L (3.5-5.1)
[2022-01-10] MEDS: CYANOCOBALAMIN (B-12) 500 MCG TABLET PO SCH (08:34)
[2022-01-10] MEDS: INSULIN GLARGINE SOLOSTAR 100 UNITS/ML 3 ML PEN SC SCH ×2 (08:35→20:18)
[2022-01-10] MEDS: POLYETHYLENE (MIRALAX) 17 GM PACK PO SCH (08:35)
[2022-01-10] MEDS: INSULIN ASPART PER UNIT SC SCH ×4 (08:36→20:19)
--- NOTE | 2022-01-10 14:02 | Orthopedic Progress Note ---
Date of Service January 10, 2022 Assessment & Plan (1) Diabetic infection of right foot: POD4 s/p below knee amputation for gas gangrene diabetic associated foot wound. No change to POC - Continue antibiotic coverage for original wound culture. Recommend 2 weeks. - Strict glucose control and education - NWB to RLE. 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 Sutures 2-3 weeks. - Continue current pain regimen. Consider adding gabapentin if another agent is needed - DVT chemoppx for at least 6 weeks Dispo: Per rehab needs. Recommend continuing parenteral abx until WBC normalized and stable >24hrs - hopefully tomorrow Subjective "No pain". No other issues. Wants to be discharged soon. Review of Systems All systems reviewed & are unremarkable except as noted in HPI & below. Physical Exam RLE: dressing c/d/i. Able to perform SLR without lag. Flexion to 90+ degrees. Constitutional WD/WN, vitals as above no acute distress and not intoxicated appearing Respiratory normal respiratory effort; no labored breathing Cardiovascular Extremities: normal capillary refill Results & Data Results & Data Laboratory Results Laboratory Tests 01/08/22 01/09/22 01/10/22 06:30 07:56 06:46 WBC 16.75 H 12.92 H 10.06 Hct 26.7 L Plt Count 427 H 404 H ESR Creatinine C-Reactive Protein 01/10/22 01/10/22 01/10/22 06:46 06:46 06:46 WBC Hct Plt Count ESR 130 H Creatinine 1.69 H C-Reactive Protein 8.64 H Diagnostic Findings . PG Care Time/CCT Total # of Minutes Spent Total Time Spent with Patient: Total time spent is greater than 50% in coordination of care (as documented) at patient's floor/unit and/or counseling patient: Coding Level of Care Code 74297 Post Operative Follow-Up Diagnoses Diabetic infection of right foot E11.628; L08.9
[2022-01-10] MEDS: amLODIPine BESYLATE 5 MG TAB PO SCH (20:19)
[2022-01-11] MEDS: ACETAMINOPHEN 325 MG TAB PO SCH ×5 (00:34→23:28)
[2022-01-11] MEDS: PIPERACILLIN/TAZOBACTAM 3.375 GM in DEXTROSE 5% 100 ML IV SCH ×2 (01:07→10:36)
[2022-01-11 07:06] LABS: Hematocrit (blood only) 25.2 % (42-52); Hemoglobin 8.1 g/dL (14.0-18.0); Mean Corpuscular Hemoglobin 26.2 pg (25-34); Mean Corpuscular Hgb Conc 32.1 g/dL (32-36); Mean Corpuscular Volume 81.6 fL (80-100); Mean Platelet Volume 9.1 fL (7.4-10.4); Platelet Count 367 K/uL (130-400); RDW Coefficient of Variation 14.4 % (11.5-14.5); RDW Standard Deviation 43.4 fL (36.4-46.3); Red Blood Count 3.09 M/uL (4.7-6.1); White Blood Count 10.71 K/uL (4.8-10.8)
[2022-01-11 07:33] LABS: BUN Creatinine Ratio 18.2 (10-20); Calcium 7.6 mg/dl (8.5-10.1); Creatinine Clr Calc Pharmacy 60.2 ml/min; Est GFR (African American) 55.6 ml/min; Potassium 4.8 mmol/L (3.5-5.1)
[2022-01-11] MEDS: CYANOCOBALAMIN (B-12) 500 MCG TABLET PO SCH (08:15)
[2022-01-11] MEDS: HEPARIN SOD 5,000 UNIT/0.5 ML VIAL SQ SCH ×2 (08:15→20:22)
[2022-01-11] MEDS: INSULIN GLARGINE SOLOSTAR 100 UNITS/ML 3 ML PEN SC SCH ×2 (08:16→20:21)
[2022-01-11] MEDS: INSULIN ASPART PER UNIT SC SCH ×4 (08:17→20:20)
--- NOTE | 2022-01-11 08:59 | Hospitalist Progress Note ---
Date of Service January 11, 2022 Assessment & Plan (1) Gas gangrene of foot: Plan: 61 yo Male pMHx. of poorly controlled DM2, HTN, B12 deficiency here for right foot gangrene now s/p BKA doing well Diabetic infection of right foot: Right foot diabetic infection/gas gangrene Given vancomycin IV and Zosyn IV in ED, switched to Daptomycin 6 mg/kg IV every 24 hours, and Zosyn 4.5 g IV every 8 hours Dapto dc'd 01/08 given negative MRSA nares and pansensitive skin wound culture, will continue to monitor. 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 Sutures 2-3 weeks. PRN Dilaudid oxycodone, Consider adding gabapentin if another agent is needed WBC stable at 10.7 ESR and CRP elevated Decreased Temperature-resolved - noted temp below 35 degrees C 01/07 - improved. no sign of new infection Gas gangrene of foot: See above CKD with acidosis: Creatinine 2.65 upon admission, with no baseline --> currently 154 given no improvement on fluids, likely CKD Bicarbonate 17 on admission - received bicarb drip. recheck 21 Sepsis: Sepsis secondary to diabetic foot infection, treat as above Bcx no growth 48hr, repeat bcx no growth 48hr surface culture group B strep alberts sensitive Acute hyponatremia: Sodium 125 on admission, corrected for hyperglycemia 131 Serum osmolality 309, urine osmolality 446 Na in normal range now. Diabetes mellitus: Glucose 354 on admission, poor glycemic control, poor understanding of diabetes A1c 8.0 Placed on glargine 14 units subcu --> currently 15U BID Accu-Cheks before meals and at bedtime with NovoLog coverage per scale Hold Metformin and Trulicity Adjust glargine dose based on above response consult glycemic education Hypertension: Hold lisinopril due to renal insufficiency Metoprolol tartrate 50 mg p.o. twice daily --> held to monitor HR response to condition, BP wnl B12 deficiency: Continue supplement 2000 mcg p.o. daily FENa: carb consistent Code Status: Full DVT PPX: heparin on hold 01/07, resumed 01/09 PT/OT: recommend inpt rehab Case Management: referral faxed to [facility] Dispo: med/tele Admission and Anticipated Discharge Date Admission Date: January 04, 2022 Supervising Physician Co-Signing Physician Notes Resident Physician Supervision Note: I independently interviewed and examined the patient and verified the ocasio history and physical, reviewed labs and image studies and agree with resident Dr. Lam findings and care plan. Radha Hernandez was doing well overnight. He denies any fever, pain, chest pain, palpitations, cough or shortness of breath. Review of Systems Review of Systems: as per HPI Physical Exam Physical Exam: Constitutional WD/WN, vitals as above Eyes PERRL, conjunctivae normal, anicteric sclerae ENMT external ear and nose normal, oropharynx normal Neck trachea midline, no thyromegaly Respiratory normal respiratory effort, lungs clear to auscultation Cardiovascular Rate/Rhythm:regular rate and regular rhythm Heart Sounds:normal S1 and normal S2; no gallop, no murmur Extremities:+ edema (mild +1 pitting edema on left leg) Chest (Breasts) Chest:normal inspection of chest Gastrointestinal (Abdomen) normal bowel sounds, soft, nontender, no hepatosplenomegaly Musculoskeletal R BKA with bandage Skin no rashes, warm and dry Psychiatric Mood:+ depressed mood Results & Data Results & Data ([facility]) Vital Signs (Past 12 Hours) Vital Signs Temp Pulse Pulse Resp BP Pulse Ox 01/11/22 06:23 36.7 C 75 18 137/69 99 01/11/22 06:13 76 01/11/22 02:53 36.6 C 77 18 141/70 H 99 01/10/22 22:38 36.5 C 74 18 147/73 H 99 01/10/22 22:17 74 CBC Results Results Complete Blood Count Results: RBC 3.09 M/uL (4.7-6.1) L 01/11/22 WBC 10.71 K/uL (4.8-10.8) 01/11/22 Hgb 8.1 g/dL (14.0-18.0) L 01/11/22 Hct 25.2 % (42-52) L 01/11/22 Plt Count 367 K/uL (130-400) 01/11/22 Chemistry (BMP) Results BMP Results: Sodium 136 mmol/L (136-145) 01/11/22 Potassium 4.8 mmol/L (3.5-5.1) 01/11/22 Chloride 109 mmol/L (98-107) H 01/11/22 Carbon Dioxide 25 mmol/L (21-32) 01/11/22 Anion Gap 2 (3-11) L 01/11/22 BUN 28 mg/dl (6-23) H 01/11/22 Creatinine 1.54 mg/dl (0.6-1.4) H 01/11/22 Glucose 115 mg/dl (70-99(Fasting)) H 01/11/22 Resident Activity Tracking Resident Involvement: Resident Care Provided Care Provided: Adult [facility] Medicine
[2022-01-11] MEDS ORDERED: POLYETHYLENE (MIRALAX) 17 GM PACK PO SCH (09:00)
[2022-01-11] MEDS: SENNA 8.6 MG TAB PO SCH (11:40)
[2022-01-11] MEDS: POLYETHYLENE (MIRALAX) 17 GM PACK PO SCH ×4 (11:40→23:26)
[2022-01-11] MEDS: AMOXICILLIN/CLAVULANATE 875 MG TAB PO SCH (17:08)
--- NOTE | 2022-01-11 17:56 | Orthopedic Progress Note ---
Date of Service January 11, 2022 Assessment & Plan (1) Diabetic infection of right foot: POD5 s/p below knee amputation for gas gangrene diabetic associated foot wound. Agree with switch to oral antibiotic coverage. Otherwise no change in plan of care. - May begin daily dressing changes as needed with nursing. - Continue antibiotic coverage for original wound culture. Recommend 2 weeks. - Strict glucose control and education - NWB to RLE. 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 Sutures 2-3 weeks. - DVT chemoppx for at least 6 weeks Dispo: Per rehab needs. Ortho clinic at 2-3 weeks from surgery. We will update discharge summary. Subjective Denies any significant pain. No issues with therapy. Happy with his progress. Anxious to move on. His low appetite and lack of BM is not surprising given his previous habits. Review of Systems All systems reviewed & are unremarkable except as noted in HPI & below. Physical Exam Today. Seems in better spirits. Sitting comfortably in the chair with his leg dangling. Right lower extremity: The residual limb is a well approximated incision with intact sutures. There is no active drainage. The drain site is nearly healed. Like to range of motion the knee with minimal discomfort displayed. Tender at the distal residual limb. Mild tenderness of the calf. But expected. Constitutional WD/WN, vitals as above no acute distress and not intoxicated appearing Respiratory normal respiratory effort; no labored breathing Cardiovascular Extremities: normal capillary refill Results & Data Results & Data Laboratory Results White blood cell count normalized over the past 2 draws. Creatinine improving Diagnostic Findings . PG Care Time/CCT Total # of Minutes Spent Total Time Spent with Patient: Total time spent is greater than 50% in coordination of care (as documented) at patient's floor/unit and/or counseling patient: Coding Level of Care Code 52243 Post Operative Follow-Up Diagnoses Diabetic infection of right foot E11.628; L08.9
[2022-01-11] MEDS: amLODIPine BESYLATE 5 MG TAB PO SCH (20:22)
[2022-01-12] MEDS: POLYETHYLENE (MIRALAX) 17 GM PACK PO SCH ×3 (03:20→07:50)
[2022-01-12] MEDS: ACETAMINOPHEN 325 MG TAB PO SCH ×4 (06:23→23:53)
[2022-01-12 07:46] LABS: Basophils # (auto) 0.01 K/uL (0-0.2); Basophils % (auto) 0.1 %; Eosinophils % (auto) 0.9 %; Hematocrit (blood only) 25.6 % (42-52); Hemoglobin 8.2 g/dL (14.0-18.0); Immature Granulocytes # (auto) 0.19 K/uL (0.00-0.02); Immature Granulocytes % (auto) 1.6 %; Lymphocytes # (auto) 1.83 K/uL (1.2-3.4); Lymphocytes % (auto) 15.8 %; Mean Corpuscular Hemoglobin 26.5 pg (25-34); Mean Corpuscular Volume 82.8 fL (80-100); Mean Platelet Volume 9.2 fL (7.4-10.4); Monocytes # (auto) 0.75 K/uL (0.11-0.59); Monocytes % (auto) 6.5 %; Neutrophils # (auto) 8.69 K/uL (1.4-6.5); Neutrophils % (auto) 75.1 %; Platelet Count 342 K/uL (130-400); RDW Coefficient of Variation 14.5 % (11.5-14.5); RDW Standard Deviation 44.2 fL (36.4-46.3); Red Blood Count 3.09 M/uL (4.7-6.1); White Blood Count 11.57 K/uL (4.8-10.8)
[2022-01-12] MEDS: CYANOCOBALAMIN (B-12) 500 MCG TABLET PO SCH (07:48)
[2022-01-12] MEDS: AMOXICILLIN/CLAVULANATE 875 MG TAB PO SCH ×2 (07:48→17:09)
[2022-01-12] MEDS: lisinopril 5 MG TAB PO SCH (07:48)
[2022-01-12] MEDS: SENNA 8.6 MG TAB PO SCH ×2 (07:48→20:40)
[2022-01-12] MEDS: INSULIN GLARGINE SOLOSTAR 100 UNITS/ML 3 ML PEN SC SCH ×2 (07:49→20:41)
[2022-01-12] MEDS: HEPARIN SOD 5,000 UNIT/0.5 ML VIAL SQ SCH ×2 (07:49→20:41)
[2022-01-12] MEDS: INSULIN ASPART PER UNIT SC SCH ×4 (07:51→20:38)
[2022-01-12 08:12] LABS: BUN Creatinine Ratio 15.8 (10-20); Calcium 7.9 mg/dl (8.5-10.1); Creatinine Clr Calc Pharmacy 63.5 ml/min; Est GFR (African American) 59.3 ml/min; Est GFR (Non-African American) 51.2 ml/min; Potassium 4.9 mmol/L (3.5-5.1)
--- NOTE | 2022-01-12 10:26 | Hospitalist Progress Note ---
Date of Service January 12, 2022 Assessment & Plan (1) Gas gangrene of foot: Plan: 61 yo Male pMHx. of poorly controlled DM2, HTN, B12 deficiency here for right foot gangrene now s/p BKA doing well Diabetic infection of right foot: Right foot diabetic infection/gas gangrene Given vancomycin IV and Zosyn IV in ED, switched to Daptomycin 6 mg/kg IV every 24 hours, and Zosyn 4.5 g IV every 8 hours Dapto dc'd 01/08 given negative MRSA nares and pansensitive skin wound culture, will continue to monitor. switched to Augmentin 875mg BID for 14 days total (dc after 01/17) Ordered Tylenol 650mg scheduled q6h Consulted orthopedic surgery THIERNO García 01/06 per ortho, continue DVT prophylaxis 6 weeks, currently on heparin Parts Representative fitting when tolerable. Sutures 2-3 weeks. PRN Dilaudid oxycodone, Consider adding gabapentin if another agent is needed WBC at 11.57 after changing abx, continue to monitor ESR and CRP elevated Diabetes mellitus: Glucose 354 on admission, poor glycemic control, poor understanding of diabetes A1c 8.0 Placed on glargine 14 units subcu --> currently 15U BID Accu-Cheks before meals and at bedtime with NovoLog coverage per scale Hold Metformin and Trulicity --> plan to resume on discharge Adjust glargine dose based on above response consult glycemic education Gas gangrene of foot: See above CKD with acidosis: Creatinine 2.65 upon admission, with no baseline --> currently 1.46 given no improvement on fluids, likely CKD Bicarbonate 17 on admission - received bicarb drip. recheck 21 Sepsis: Sepsis secondary to diabetic foot infection, treat as above Bcx no growth 48hr, repeat bcx no growth 48hr surface culture group B strep alberts sensitive Decreased Temperature-resolved - noted temp below 35 degrees C 01/07 - improved. no sign of new infection Acute hyponatremia - resolved: Sodium 125 on admission, corrected for hyperglycemia 131 Serum osmolality 309, urine osmolality 446 Na in normal range now. Hypertension: Hold lisinopril due to renal insufficiency Metoprolol tartrate 50 mg p.o. twice daily --> held to monitor HR response to condition, BP wnl B12 deficiency: Continue supplement 2000 mcg p.o. daily Constipation -aggressive bowel regimen FENa: carb consistent Code Status: Full DVT PPX: heparin on hold 01/07, resumed 01/09 PT/OT: recommend inpt rehab Case Management: referral faxed to [facility] Dispo: med/tele (2) Diabetic infection of right foot: Admission and Anticipated Discharge Date Admission Date: January 04, 2022 Supervising Physician Co-Signing Physician Notes Resident Physician Supervision Note: I independently interviewed and examined the patient and verified the ocasio history and physical, reviewed labs and image studies and agree with resident Dr. Arce findings and care plan. Subjective Patient seen seated upright at bedside, calm comfortable cooperative. He states he is feeling well today, overall more motivated. Patient is able to recall his diabetes medication regime, understands he needs more rigid control and follow up to prevent a similar hospitalization. No acute concerns at this time. Review of Systems Review of Systems: Negative fever chills Negative headache dizziness Negative chest pain palpitations SOB Negative nausea vomitting diarrhea constipation Negative numbness tingling rash swelling Physical Exam Constitutional: WD/WN, vitals as above Eyes: PERRL, conjunctivae normal, anicteric sclerae ENMT: external ear and nose normal, oropharynx normal Neck: trachea midline, no thyromegaly Respiratory: normal respiratory effort, lungs clear to auscultation Cardiovascular: Rate/Rhythm: regular rate and regular rhythm Heart Sounds: normal S1 and normal S2; no gallop, no murmur and no cardiac rub Extremities: + edema (mild +1 pitting edema on left leg) Chest (Breasts): Chest: normal inspection of chest Gastrointestinal (Abdomen): normal bowel sounds, soft, nontender, no hepatosplenomegaly Musculoskeletal: R BKA with bandage Skin: no rashes, warm and dry Psychiatric: A+Ox3, euthymic affect Results & Data Results & Data ([facility]) Vital Signs (Past 12 Hours) Vital Signs Temp Pulse Pulse Resp BP Pulse Ox 01/12/22 06:19 36.5 C 80 20 144/71 H 99 01/12/22 06:09 80 01/12/22 02:57 36.6 C 82 18 126/69 99 01/11/22 23:32 36.6 C 86 18 139/66 99 01/11/22 23:18 83 Laboratory Results 01/12/22 01/12/22 01/12/22 Range/Units 11:44 07:50 07:15 WBC (4.8-10.8) K/uL RBC (4.7-6.1) M/uL Hgb (14.0-18.0) g/dL Hct (42-52) % MCV (80-100) fL MCH (25-34) pg MCHC (32-36) g/dL RDW Std Deviation (36.4-46.3) fL RDW Coeff of Radha (11.5-14.5) % Plt Count (130-400) K/uL MPV (7.4-10.4) fL Immature Gran % (Auto) % Neut % (Auto) % Lymph % (Auto) % [place] % (Auto) % Eos % (Auto) % Baso % (Auto) % Neut # (Auto) (1.4-6.5) K/uL Lymph # (Auto) (1.2-3.4) K/uL [place] # (Auto) (0.11-0.59) K/uL Eos # (Auto) (0-0.5) K/uL Baso # (Auto) (0-0.2) K/uL Immature Gran # (Auto) (0.00-0.02) K/uL Sodium 137 (136-145) mmol/L Potassium 4.9 (3.5-5.1) mmol/L Chloride 110 H (98-107) mmol/L Carbon Dioxide 24 (21-32) mmol/L Anion Gap 3 (3-11) BUN 23 (6-23) mg/dl Creatinine 1.46 H (0.6-1.4) mg/dl Est Cr Clr Drug Dosing 63.5 ml/min Est GFR ( Amer) 59.3 ml/min Est GFR (Non-Af Amer) 51.2 ml/min BUN/Creatinine Ratio 15.8 (10-20) Glucose 101 H (70-99(Fasting)) mg/dl POC Glucose 142 H 106 H (70-99) mg/dl Calcium 7.9 L (8.5-10.1) mg/dl 01/12/22 01/11/22 01/11/22 Range/Units 07:15 20:15 16:42 WBC 11.57 H (4.8-10.8) K/uL RBC 3.09 L (4.7-6.1) M/uL Hgb 8.2 L (14.0-18.0) g/dL Hct 25.6 L (42-52) % MCV 82.8 (80-100) fL MCH 26.5 (25-34) pg MCHC 32.0 (32-36) g/dL RDW Std Deviation 44.2 (36.4-46.3) fL RDW Coeff of Radha 14.5 (11.5-14.5) % Plt Count 342 (130-400) K/uL MPV 9.2 (7.4-10.4) fL Immature Gran % (Auto) 1.6 % Neut % (Auto) 75.1 % Lymph % (Auto) 15.8 % [place] % (Auto) 6.5 % Eos % (Auto) 0.9 % Baso % (Auto) 0.1 % Neut # (Auto) 8.69 H (1.4-6.5) K/uL Lymph # (Auto) 1.83 (1.2-3.4) K/uL [place] # (Auto) 0.75 H (0.11-0.59) K/uL Eos # (Auto) 0.10 (0-0.5) K/uL Baso # (Auto) 0.01 (0-0.2) K/uL Immature Gran # (Auto) 0.19 H (0.00-0.02) K/uL Sodium (136-145) mmol/L Potassium (3.5-5.1) mmol/L Chloride (98-107) mmol/L Carbon Dioxide (21-32) mmol/L Anion Gap (3-11) BUN (6-23) mg/dl Creatinine (0.6-1.4) mg/dl Est Cr Clr Drug Dosing ml/min Est GFR ( Amer) ml/min Est GFR (Non-Af Amer) ml/min BUN/Creatinine Ratio (10-20) Glucose (70-99(Fasting)) mg/dl POC Glucose 130 H 123 H (70-99) mg/dl Calcium (8.5-10.1) mg/dl Medications Administered Current Inpatient Medications Acetaminophen (Acetaminophen 325 Mg Tab) 650 mg PO Q6 [facility] Stop: 02/05/22 17:59 Last Admin: 01/12/22 12:30 Dose: 650 mg Documented by: Amlodipine Besylate (Amlodipine Besylate 5 Mg Tab) 5 mg PO HS [facility] Stop: 02/04/22 20:59 Last Admin: 01/11/22 20:22 Dose: 5 mg Documented by: Amoxicillin/Clavulanate Potassium (Amoxicillin/Clavulanate 875 Mg Tab) 1 tab PO BIDM [facility] Stop: 02/22/22 16:59 Last Admin: 01/12/22 07:48 Dose: 1 tab Documented by: Cyanocobalamin (Cyanocobalamin (B-12) 500 Mcg Tablet) 2,000 mcg PO DAILY [facility] Stop: 02/04/22 08:59 Last Admin: 01/12/22 07:48 Dose: 2,000 mcg Documented by: Dextrose (Dextrose 50% 50 Ml Syringe) 25 - 50 ml IV UD PRN; Protocol PRN Reason: Hypoglycemia Protocol Stop: 02/04/22 00:06 Glucagon (Glucagon For Inj 1 Mg Vial) 1 mg SQ UD PRN; Protocol PRN Reason: Hypoglycemia Protocol Stop: 02/04/22 00:06 Glucose (Glucose 10 Tabs/Tube) 4 - 8 tabs PO UD PRN; Protocol PRN Reason: Hypoglycemia Protocol Stop: 02/04/22 00:06 Glucose (Glucose 40% Gel 15 Gm Tube) 15 - 30 gm PO UD PRN; Protocol PRN Reason: Hypoglycemia Protocol Stop: 02/04/22 00:06 Heparin Sodium (Porcine) (Heparin Sod 5,000 Unit/0.5 Ml Vial) 5,000 units SQ Q12 [facility] Stop: 02/04/22 08:59 Last Admin: 01/12/22 07:49 Dose: 5,000 units Documented by: Hydromorphone HCl (Hydromorphone Inj 0.5 Mg/0.5 Ml Syr) 0.5 mg IV Q3H PRN PRN Reason: Pain (6,7,8,9,10) Stop: 01/20/22 18:04 Last Admin: 01/06/22 20:22 Dose: 0.5 mg Documented by: Insulin Aspart (Insulin Aspart Per Unit) 0 units SC ACHS [facility] Stop: 02/05/22 20:59 Last Admin: 01/12/22 12:16 Dose: 8 units Documented by: Insulin Glargine (Insulin Glargine Solostar 100 Units/Ml 3 Ml Pen) 15 units SC BID [facility] Stop: 02/07/22 08:59 Last Admin: 01/12/22 07:49 Dose: 15 units Documented by: Lisinopril (Lisinopril 5 Mg Tab) 5 mg PO DAILY [facility] Stop: 02/04/22 08:59 Last Admin: 01/12/22 07:48 Dose: 5 mg Documented by: Miscellaneous (Dulaglutide [Trulicity] - Order Awaiting Action) 1 ea N/A QS [facility] Stop: 02/04/22 07:59 Last Admin: 01/07/22 17:47 Dose: Not Given Documented by: Miscellaneous (Carbohydrates For Hypoglycemia ) 15 - 30 gm PO UD PRN PRN Reason: Hypoglycemia Protocol Stop: 02/04/22 00:06 Ondansetron HCl (Ondansetron Inj 2 Mg/Ml 2 Ml Vial) 4 mg IV Q6H PRN PRN Reason: Nausea Stop: 02/04/22 00:06 Oxycodone HCl (Oxycodone Hcl Ir 5 Mg Tab (Immediate Release)) 5 mg PO Q4H PRN PRN Reason: MODERATE Pain (4,5,6) & Pre PT Stop: 01/20/22 18:04 Last Admin: 01/07/22 05:40 Dose: 5 mg Documented by: Oxycodone HCl (Oxycodone Hcl Ir 5 Mg Tab (Immediate Release)) 10 mg PO Q4H PRN PRN Reason: SEVERE Pain (7,8,9,10) Stop: 01/20/22 18:04 Last Admin: 01/07/22 01:48 Dose: 10 mg Documented by: Polyethylene Glycol (Polyethylene (Miralax) 17 Gm Pack) 51 gm PO DAILY [facility] Stop: 02/12/22 08:59 Sennosides (Senna 8.6 Mg Tab) 17.2 mg PO BID [facility] Stop: 02/11/22 20:59 Resident Activity Tracking Resident Involvement: Resident Care Provided Care Provided: Adult Hospital Medicine
[2022-01-12] MEDS ORDERED: POLYETHYLENE (MIRALAX) 17 GM PACK PO ONE (12:45)
--- NOTE | 2022-01-12 16:22 | Orthopedic Progress Note ---
Date of Service January 12, 2022 Assessment & Plan (1) Diabetic infection of right foot: POD6 s/p below knee amputation for gas gangrene diabetic associated foot wound. Stable for transition to rehabilitation and outpatient orthopedic care. - May begin daily dressing changes as needed with nursing. May begin to get the wound wet in the shower for careful hygiene. No soaking or submersing for at least 3 weeks or until after the next follow-up. - Continue antibiotic coverage for original wound culture. Recommend 2 weeks. - Strict glucose control and education - NWB to RLE. T[employer] fitting with prosthetics as soon as possible. Sutures 2-3 weeks in the orthopedic clinic - DVT chemoppx for at least 6 weeks. Oral or subcutaneous acceptable. Dispo: Per rehab needs. Ortho clinic at 2-3 weeks from surgery. Subjective Reports that he has no pain. He has been up and about with physical therapy and is pleased he wants to move on to rehab. He asked a lot of questions today about prosthetic fitting and moving forward. No other concerns or issues. Review of Systems All systems reviewed & are unremarkable except as noted in HPI & below. Physical Exam RLE: He is flecked range of motion of the knee. He sitting comfortably with a dangling in the chair. Dressings clean dry and intact and no reason to disturb. Constitutional WD/WN, vitals as above no acute distress and not intoxicated appearing Respiratory normal respiratory effort; no labored breathing Cardiovascular Extremities: normal capillary refill Results & Data Results & Data Laboratory Results Slight, nominal increase in his white blood cell count. Diagnostic Findings . PG Care Time/CCT Total # of Minutes Spent Total Time Spent with Patient: Total time spent is greater than 50% in coordination of care (as documented) at patient's floor/unit and/or counseling patient: Coding Level of Care Code 73312 Post Operative Follow-Up Diagnoses Diabetic infection of right foot E11.628; L08.9
[2022-01-12] MEDS: amLODIPine BESYLATE 5 MG TAB PO SCH (20:41)
[2022-01-13] MEDS: ACETAMINOPHEN 325 MG TAB PO SCH ×2 (05:50→12:12)
[2022-01-13 07:23] LABS: Hematocrit (blood only) 24.1 % (42-52); Hemoglobin 7.8 g/dL (14.0-18.0); Mean Corpuscular Hemoglobin 26.8 pg (25-34); Mean Corpuscular Hgb Conc 32.4 g/dL (32-36); Mean Corpuscular Volume 82.8 fL (80-100); Platelet Count 288 K/uL (130-400); RDW Coefficient of Variation 14.5 % (11.5-14.5); RDW Standard Deviation 44.1 fL (36.4-46.3); Red Blood Count 2.91 M/uL (4.7-6.1); White Blood Count 10.27 K/uL (4.8-10.8)
[2022-01-13] MEDS ORDERED: POLYETHYLENE (MIRALAX) 17 GM PACK PO SCH (09:00)
[2022-01-13] MEDS: INSULIN ASPART PER UNIT SC SCH ×2 (09:09→12:07)
[2022-01-13] MEDS: INSULIN GLARGINE SOLOSTAR 100 UNITS/ML 3 ML PEN SC SCH (09:10)
[2022-01-13] MEDS: AMOXICILLIN/CLAVULANATE 875 MG TAB PO SCH (09:15)
[2022-01-13] MEDS: lisinopril 5 MG TAB PO SCH (09:15)
[2022-01-13] MEDS: HEPARIN SOD 5,000 UNIT/0.5 ML VIAL SQ SCH (09:15)
[2022-01-13] MEDS: CYANOCOBALAMIN (B-12) 500 MCG TABLET PO SCH (09:15)
[2022-01-13] MEDS: SENNA 8.6 MG TAB PO SCH (09:16)
--- NOTE | 2022-01-13 10:22 | Discharge Summary ---
Date of Service January 13, 2022 Admission HPI Per Admitting Provider The patient is a 61-year-old male with a past medical history including poorly controlled diabetes mellitus, hypertension, B12 deficiency, hypertension and erectile dysfunction. He presents with symptoms as noted above. He has not been checking his sugars on any type of regular frequency, and does have insulin but only occasionally takes it. Admission Exam Per Admitting Provider The patient is awake, alert and oriented 3, well developed and well nourished, normocephalic and atraumatic, lying in bed and in no acute distress. HEENT--PERRL, EOMI, mucous membranes and oropharynx dry. Neck--supple. No JVD. No bruits. Thyroid normal, trachea midline, no adenopathy. Heart--normal S1 and S2. No murmurs, rubs or gallops. Lungs--clear bilaterally, no respiratory distress, no accessory muscle use. Abdomen--normal bowel sounds and soft. Nontender. Nondistended, no hernias or masses, no organomegaly. Extremities--no cyanosis or clubbing. No edema. There are good distal pulses b/l. Dermatologic--right foot is wrapped. Left without injury Neurologic--cranial nerves II through XII grossly intact. Rheumatologic--normal range of motion. Psychiatric--normal affect. Principal Diagnosis Diabetic Foot ulcer s/p BKA Discharge Exam Constitutional WD/WN, vitals as above Eyes PERRL, conjunctivae normal, anicteric sclerae ENMT external ear and nose normal, oropharynx normal Neck trachea midline, no thyromegaly Respiratory normal respiratory effort, lungs clear to auscultation Cardiovascular Rate/Rhythm: regular rate and regular rhythm Heart Sounds: normal S1 and normal S2; no gallop, no murmur and no cardiac rub Extremities: + edema (mild +1 pitting edema on left leg) Chest (Breasts) Chest: normal inspection of chest Gastrointestinal (Abdomen) normal bowel sounds, soft, nontender, no hepatosplenomegaly Musculoskeletal R BKA in bandages Skin no rashes, warm and dry Psychiatric A+Ox3, euthymic affect Discharge Data Allergies Allergy/AdvReac Type Severity Reaction Status Date / Time No Known Allergies Allergy Verified 01/04/22 20:34 Consultations 01/04/22 21:26 ED Decision to Admit Stat 01/05/22 02:51 Consult Orthopedic Surgery Routine Procedures Performed Operation Date: 01/06/22 07:00 Actual Procedures p Right Below Knee Amputation(Right) - Ranjeet Soto MD Ordered Studies 01/04/22 22:41 US arterial duplex LE RT Urgent Hospital Course (1) Gas gangrene of foot: 61 yo Male pMHx. of poorly controlled DM2, HTN, B12 deficiency here for right foot gangrene now s/p BKA doing well -Patient to continue Augmentin 875mg BID for 5 days -Patient started on Eliquis 2.5mg BID for DVT prophylaxis, may discontinue (02/17) -Patient to resume home diabetic medication Tresiba (U-200) 50 units at bedtime, Trulicity 1.5mg weekly (Sundays), Metformin ER 750mg daily in AM -Patient requires recheck CBC in 1 week for monitor anemia Diabetic infection of right foot: Right foot diabetic infection/gas gangrene Given vancomycin and Zosyn in ED, switched to Daptomycin and Zosyn, switched to Augmentin 875mg BID for 14 days total abx (dc after 01/17) Ordered Tylenol 650mg scheduled q6h Consulted orthopedic surgery THIERNO García 01/06 per ortho, continue DVT prophylaxis 6 weeks (02/17), will be on eliquis 2.5mg BID in outpatient Dentist/Owner fitting when tolerable. Sutures may be removed in 2-3 weeks at Ortho clinic (01/20-01/27) PRN Dilaudid oxycodone, last used 01/07 WBC at 05/11 ESR and CRP elevated Diabetes mellitus: Glucose 354 on admission, noted poor glycemic control, poor understanding of diabetes A1c 8.0 Consulted Glycemic Education In hospital, placed on glargine 15U BID, novolog CF 15, CR 4. Patient to resume Metformin, Insulin Degludec 50U bedtime, and Trulicity Anemia -Hbg 7.9 -recheck CBC in outpatient in 1 week Gas gangrene of foot: See above CKD with acidosis: Creatinine 2.65 upon admission, with no baseline --> last 1.46 Bicarbonate 17 on admission - received bicarb drip. recheck 21 Sepsis: Sepsis secondary to diabetic foot infection, treat as above Bcx no growth 48hr, repeat bcx no growth 48hr surface culture group B strep alberts sensitive Decreased Temperature-resolved - noted temp below 35 degrees C 01/07 - improved. no sign of new infection Acute hyponatremia - resolved: Sodium 125 on admission, corrected for hyperglycemia 131 Serum osmolality 309, urine osmolality 446 Na in normal range now. Hypertension: Held lisinopril due to renal insufficiency, may resume in outpatient B12 deficiency: Continue supplement 2000 mcg p.o. daily (2) Diabetic infection of right foot: Total Time Total Time Spent Total Time Spent (In Minutes): see attending attestation Discharge Plan Discharge Items Patient Disposition: Transfer Inpatient Rehab Fac Reason For Visit: DAIBETIC FOOT ULCER Discharge Diagnosis: Diabetic Foot ulcer s/p BKA Activity: Per Instructions section Non-emergency contact: Primary Care Provider Call non-emergency contact if: you have any medication questions, your symptoms worsen and you have a fever Follow-up/Referrals: Jelani Martínez MD [Surgeon] - De Quinn DO [Primary Care Provider] - Diet: Carb Consistent or DM2 Addtl Attending Provider Instructions: 61 yo Male pMHx. of poorly controlled DM2, HTN, B12 deficiency here for right foot gangrene now s/p BKA doing well Diabetic infection of right foot: Right foot diabetic infection/gas gangrene Given vancomycin and Zosyn in ED, switched to Daptomycin and Zosyn, switched to Augmentin 875mg BID for 14 days total abx (dc after 01/17) Ordered Tylenol 650mg scheduled q6h Consulted orthopedic surgery THIERNO García 01/06 per ortho, continue DVT prophylaxis 6 weeks (02/17), will dc on Eliquis 2.5mg BID Dentist/Owner fitting when tolerable. Sutures may be removed in 2-3 weeks at Ortho clinic (01/20-01/27) PRN Dilaudid oxycodone, last used 01/07 WBC at 05/11 ESR and CRP elevated Diabetes mellitus: Glucose 354 on admission, noted poor glycemic control, poor understanding of diabetes A1c 8.0 Consulted Glycemic Education In hospital, placed on glargine 15U BID, novolog CF 15, CR 4. Patient to resume Metformin, Insulin Degludec 50U bedtime, and Trulicity Anemia -Hbg 7.9 -recheck CBC in outpatient in 1 week Gas gangrene of foot: See above CKD with acidosis: Creatinine 2.65 upon admission, with no baseline --> last 1.46 Bicarbonate 17 on admission - received bicarb drip. recheck 21 Sepsis: Sepsis secondary to diabetic foot infection, treat as above Bcx no growth 48hr, repeat bcx no growth 48hr surface culture group B strep laberts sensitive Decreased Temperature-resolved - noted temp below 35 degrees C 01/07 - improved. no sign of new infection Acute hyponatremia - resolved: Sodium 125 on admission, corrected for hyperglycemia 131 Serum osmolality 309, urine osmolality 446 Na in normal range now. Hypertension: Held lisinopril due to renal insufficiency, may resume in outpatient B12 deficiency: Continue supplement 2000 mcg p.o. daily Pending Studies at Discharge: No Stand-Alone Forms: My [facility] Skilled Items Patient informed of condition?: Yes DNR: No Discharge Level of Care: Acute rehab Communicable Disease: No Discharge Prognosis: Stable Lines: None Urinary Catheter: No Medications and DC Order Prescriptions: New amoxicillin-pot clavulanate 875-125 mg tablet 1 tab PO BID 5 Days Qty: 10 RF: 0 Eliquis 2.5 mg tablet 2.5 mg PO BID 35 Days Qty: 70 RF: 0 Continued amlodipine 5 mg tablet 5 mg PO HS RF: 0 sildenafil 100 mg tablet 50 - 100 mg PO DIRECTED PRN (Reason: Erectile Dysfunction) RF: 0 lisinopril 5 mg tablet 5 mg PO DAILY RF: 0 cyanocobalamin (vitamin B-12) 2,000 mcg tablet extended release 2,000 mcg PO DAILY RF: 0 metformin 750 mg tablet extended release 24 hr 750 mg PO DAILY RF: 0 Tresiba FlexTouch U-200 200 unit/mL (3 mL) Insulin Pen 0 unit SUBCUT DAILY RF: 0 Trulicity 1.5 mg/0.5 mL Pen Injector 0 mg SUBCUT WK RF: 0 Discharge Orders: Discharge Order (Routine); Ordered 01/13/22 Ordered By: Elsa Arce Admission Data Admit Date/Time: 01/04/22 22:54 Attending Provider: Urvashi Adams Admit Provider: Jairo Travis Primary Care Provider: De Quinn Other Providers: Jairo Travis ; Ranjeet Soto ; Charles Vo Other Interventions: Discharge Summary Assessment (RN) Last Done: 01/13/22 13:01 Supervising Physician Co-Signing Physician Notes Resident Physician Supervision Note: I independently interviewed and examined the patient and verified the ocasio history and physical, reviewed labs and image studies and agree with resident Dr. Arce findings and care plan. Resident Activity Tracking Resident Involvement: Resident Care Provided Care Provided: Adult [facility] Medicine
== END 2022-01-13 15:17 | DRG 854 ==
LOC: ED 19:07 → SUATTDRO 22:54 → 3N 22:54 → 2W 01-07 15:31